=== PATIENT | female | born 1955 | race Caucasian/White ===

== ENCOUNTER 2017-11-18 10:05 | Outpatient (CLI) | payer OTHER ==
[2017-11-18 10:26] LABS: CREATININE 0.5 mg/dL (0.4-1.0)
== END 2017-11-18 10:06 | disposition home or self-care (01) ==
LOC: LAB 10:05
PROVIDERS: ATTEND Psychiatry & Neurology Vascular Neurology
DX: G35 Multiple sclerosis (principal)
CPT/HCPCS: 36415; 82565

== ENCOUNTER 2017-11-19 07:49 | Outpatient (CLI) | payer OTHER ==
[2017-11-19] MEDS ORDERED: GADOBUTROL 15 MMOL/15 ML VIAL ONE (07:52)
[2017-11-19] MEDS ORDERED: GADOBUTROL 15 MMOL/15 ML VIAL IVP ONE (08:24)
--- NOTE | 2017-11-19 12:29 | MRI Report ---
EXAM: MRI BRAIN WITHOUT AND WITH CONTRAST EXAM DATE: 11/19/2017 08:50 AM. CLINICAL HISTORY: Multiple sclerosis. History of cervical cancer 30 years ago. COMPARISON: MRI of the brain 04/14/2016. TECHNIQUE: Multiplanar, multisequence T1-weighted and fluid-sensitive MR sequences of the brain were performed. Sequences optimized for routine evaluation. Other: None. IV Contrast: 12 cc Gadavist. FINDINGS: Brain Volume: Normal for age. Parenchyma: Multiple foci of FLAIR hyperintensity with corresponding T1 hypointensity are present, co nsistent with demyelinating plaques. Callosal, lateral callosal, periventricular, deep, and subcortic al white matter involvement is seen in the cerebral hemispheres. Interval development of a bilobed 6 mm focus of cortical and subcortical based signal abnormality with faint enhancement is seen in the i nferior pole of the left occipital lobe. Increased diffusion without decreased ADC map signal is seen in this focus. Additionally there are several foci of cortical and subcortical based signal abnormality with encepha lomalacia seen. These are noted posterolaterally in the right cerebellum, superiorly in the left cere bellum, in the high posterior right parietal lobe. These are unchanged. No parenchymal mass or hemorr ashley. Ventricles/Cisterns: No hydrocephalus. No abnormal extra-axial fluid collection or hemorrhage. Orbits: Unremarkable. Note is made of bilateral lens removal. Postoperative change from left scleral buckling procedure is noted. These findings are unchanged. Sella Turcica: Note is made of a partially empty sella turcica. The pituitary gland, cavernous sinuse s, suprasellar cistern and optic chiasm are unremarkable. IAC: Symmetric and unremarkable. Vasculature: Normal signal flow void is seen in the major arterial structures at the skull base. The dural sinuses are patent and enhance normally. Sinuses: No acute sinus disease. Bones: No focal pathologic appearing marrow signal changes. Other: None. IMPRESSION: 1. Multiple foci of white matter signal change in the cerebral hemispheres consistent with clinical h istory of multiple sclerosis. There is a new bilobed 6 mm focus of cortical and subcortical signal se en in the left occipital pole. This demonstrates faint mild enhancement, increased diffusion signal w ithout decrease in ADC map signal. This could represent focus of active demyelination versus subacute ischemic focus. 2. Several wedge-shaped foci of cortical and subcortical signal abnormality and encephalomalacia seen in bilateral cerebellar hemispheres and the high right parietal lobe. These are unchanged. This coul d represent sequela of demyelination versus old infarcts. 3. No intracranial mass or hemorrhage. [facility] Referring Provider Line: [phone] SITE ID: [id number]
== END 2017-11-19 07:50 | disposition home or self-care (01) ==
LOC: DI 07:49
PROVIDERS: ATTEND Psychiatry & Neurology Vascular Neurology
DX: G35 Multiple sclerosis (principal)
CPT/HCPCS: 70553; A9585

== ENCOUNTER 2018-02-23 10:59 | Outpatient (CLI) | payer OTHER ==
--- NOTE | 2018-02-25 09:10 | Mammography Report ---
BILATERAL MAMMOGRAM AND BILATERAL BREAST ULTRASOUND: 02/23/2018 HISTORY: Bilateral breast pain. TECHNIQUE: Bilateral digital CC, MLO, ML and right exaggerated CC projections are performed. COMPARISON: 06/08/2016, 02/14/2015, 02/24/2014, and 10/05/2012. FINDINGS There are scattered fibroglandular densities. There is a Port-A-Cath in the left upper chest. There is no dominant mass, architectural distortion, skin thickening, suspicious microcalcifications or interval change. In the area of the small palpable lump 12-o'clock position right breast, no abnormality is seen. Realtime scanning is performed of the left breast upper outer quadrant in the area of clinical tenderness. No cystic or solid mass, abnormal fluid collections or other abnormality is seen. Right breast ultrasound is performed in the area of clinical tenderness in the 10 to 11-o'clock position, 10 cm from the nipple. No cystic or solid mass or abnormal fluid collection is seen. In the area of palpable abnormality in the 1 to 2-o'clock position, 10 cm from the nipple, no abnormality is identified. IMPRESSION: NEGATIVE BILATERAL MAMMOGRAPHY AND BILATERAL BREAST ULTRASOUND. BI-RADS CATEGORY 1 - NEGATIVE. SUGGEST ROUTINE SCREENING IN 12 MONTHS. SUGGEST CLINICAL FOLLOWUP OF BREAST TENDERNESS. STANDARD QUALIFYING STATEMENTS 1. This examination was reviewed with the aid of Computer-Aided Detection (CAD) . 2. A negative or benign imaging report should not delay biopsy if clinically suspicious findings are present. Consider surgical consultation if warranted. More than 5 % of cancers are not identified by imaging. 3. Dense breasts may obscure an underlying neoplasm. TD: 02/23/2018 14:46 RACHELE
== END 2018-02-23 11:00 | disposition home or self-care (01) ==
LOC: DI 10:59
PROVIDERS: ATTEND Physician Assistant
DX: N64.4 Mastodynia (principal)
CPT/HCPCS: 76642; 77066

== ENCOUNTER 2018-07-15 08:03 | Outpatient (CLI) | payer OTHER ==
[2018-07-15 08:19] LABS: BASOPHILS % (AUTO) 0.7 %; EOSINOPHILS # (AUTO) 0.2 10^3/uL (0.0-0.7); EOSINOPHILS % (AUTO) 4.4 %; HGB - HEMOGLOBIN 13.4 g/dL (12.0-16.0); LYMPHOCYTES # (AUTO) 1.6 10^3/uL (1.5-3.5); MEAN CORPUSCULAR HEMOGLOBIN 31.9 pg (27.0-31.0); MEAN CORPUSCULAR HGB CONC 33.9 g/dL (32.0-36.0); MEAN CORPUSCULAR VOLUME 94.3 fL (81.0-99.0); MEAN PLATELET VOLUME 7.9 fL (7.9-10.8); MONOCYTES # (AUTO) 0.4 10^3/uL (0.0-1.0); MONOCYTES % (AUTO) 9.9 %; NEUTROPHILS # (AUTO) 2.2 10^3/uL (1.5-6.6); PLT - PLATELET COUNT 163 10^3/uL (130-450); RED BLOOD COUNT 4.19 10^6/uL (4.20-5.40); RED CELL DISTRIBUTION WIDTH 13.4 % (12.0-15.0); WHITE BLOOD COUNT 4.5 x10^3/uL (4.8-10.8)
[2018-07-15 08:38] LABS: HB2 TOTAL 14.4 g/dL; HEMOGLOBIN A1C 0.51 g/dL; HEMOGLOBIN A1C % 5.4 % (4.6-6.2)
[2018-07-15 08:39] LABS: ALBUMIN 4.2 g/dL (3.2-5.5); ALBUMIN/GLOBULIN RATIO 1.6 (1.0-2.2); ALKALINE PHOSPHATASE 54 IU/L (42-121); ALT ALANINE AMINOTRANSFERASE 16 IU/L (10-60); AST ASPARTATE AMINOTRANSFERASE 19 IU/L (10-42); BILIRUBIN,TOTAL 0.8 mg/dL (0.2-1.0); BUN - BLOOD UREA NITROGEN 17 mg/dL (6-20); CALCIUM 8.9 mg/dL (8.5-10.3); CARBON DIOXIDE - CO2 27 mmol/L (21-32); CHLORIDE 107 mmol/L (101-111); CHOLESTEROL 241 mg/dL; CREATININE 0.6 mg/dL (0.4-1.0); GFR - MDRD 101 (>89); GLUCOSE 104 mg/dL (70-100); HDL CHOLESTEROL 48 mg/dL; LDL CHOLESTEROL,CALCULATED 169 mg/dL; LDL/HDL RATIO 3.5 (<4.4); SODIUM 141 mmol/L (135-145); TOTAL PROTEIN 6.9 g/dL (6.7-8.2); VLDL CHOLESTEROL 24 mg/dL
== END 2018-07-15 08:04 | disposition home or self-care (01) ==
LOC: LAB 08:03
PROVIDERS: ATTEND Family Medicine
DX: Z00.00 Encounter for general adult medical examination without abnormal findings (principal)
CPT/HCPCS: 36415; 80053; 80061; 83036; 83721; 84443; 85025

== ENCOUNTER 2018-12-16 22:52 | Outpatient (CLI) | payer BC ==
--- NOTE | 2018-12-17 00:48 | Ultrasound Report ---
Reason: LEG EDEMA,LEFT Procedure Date: 12/16/2018 Accession Number: [id number] / [id number] Procedure: US - Duplex Ext Veins Left CPT Code: FULL RESULT: EXAM: LEFT LOWER EXTREMITY VENOUS ULTRASOUND EXAM DATE: 12/16/2018 11:55 PM. CLINICAL HISTORY: LEG EDEMA,LEFT. COMPARISON: None. TECHNIQUE: Real-time sonographic vascular imaging was performed by the food supervisor through the lower extremity utilizing both color-flow and Doppler spectral analysis. Multiple accounts receivable representative static images were saved for review. FINDINGS: Common Femoral Vein (CFV): Normal. CFV-GSV Junction: Normal. Profunda Femoral Vein (PFV): Normal. Femoral Vein (FV) Prox: Normal. Femoral Vein (FV) Mid: Normal. Femoral Vein (FV) Dist: Normal. Popliteal Vein: Normal. Posterior Tibial Veins: Suboptimally seen due to edema. No thrombus identified. Peroneal Veins: Not seen due to edema. Contralateral Side CFV: Normal. Other: Popliteal fossa cyst measuring 5.4 x 1.7 x 3.5 cm. Subcutaneous edema in the symptomatic area. IMPRESSION: 1. No evidence for deep venous thrombosis. 2. Powers's cyst measuring 5.4 x 1.7 x 3.5 cm. [facility] The call report notification system was initiated by Dr. Sony Marques at 12:47 AM hrs on 12/17/2018.
== END 2018-12-16 22:53 | disposition home or self-care (01) ==
LOC: DI 22:52
PROVIDERS: ATTEND Family Medicine
DX: M71.22 Synovial cyst of popliteal space [Baker], left knee (principal)

== ENCOUNTER 2019-06-02 15:05 | Outpatient (CLI) | payer BC ==
--- NOTE | 2019-06-05 17:10 | Ultrasound Report ---
Reason: CLAUDICATION, BILATERAL Procedure Date: 06/02/2019 Accession Number: [id number] / [id number] Procedure: US - Duplex Lwr Ext Arterial Bilat CPT Code: FULL RESULT: EXAM: Bilateral Lower Extremity Arterial Doppler Ultrasound EXAM DATE: 06/02/2019 04:25 PM. CLINICAL HISTORY: Claudication, bilateral. COMPARISON: None. TECHNIQUE: Real-time sonographic vascular imaging was performed by the supervisor trust accounts, utilizing color-flow, Doppler flow, and spectral analysis. Multiple financial sales representative static images were saved for review. FINDINGS: The bilateral lower extremity arterial systems are interrogated by grayscale, color Doppler and spectral Doppler. The bilateral common femoral, deep femoral, superficial femoral, popliteal, anterior tibial, posterior tibial and peroneal arteries as well as dorsalis pedis arteries are patent by color Doppler. Spectral Doppler demonstrates brisk systolic upstrokes throughout both lower extremities. Grayscale examination demonstrates no subjectively high-grade focal stenosis. The following peak systolic velocities in centimeters per second were obtained. Right Lower Extremity: CITIZENSHIP TEACHER: 130 PSFA: 118 MSFA: 105 DSFA: 66 PFA: 42 POP: 60 ADELAIDE: 61 GAMES MANAGER: 108 MOIZ: 68 DPA: 42 Left Lower Extremity: CITIZENSHIP TEACHER: 80 PSFA: 108 MSFA: 110 DSFA: 103 PFA: 44 POP: 63 ADELAIDE: 51 GAMES MANAGER: 73 MOIZ: 85 DPA: 64 IMPRESSION: Normal three-vessel patency with preserved brisk arterial upstrokes in both lower extremities. [facility]
== END 2019-06-02 15:06 | disposition home or self-care (01) ==
LOC: DI 15:05
PROVIDERS: ATTEND Family Medicine
DX: I73.9 Peripheral vascular disease, unspecified (principal)
CPT/HCPCS: 93925

== ENCOUNTER 2019-09-20 13:57 | Outpatient (CLI) | payer BC ==
--- NOTE | 2019-09-22 11:26 | Mammography Report ---
Reason: ANNUAL SCREENING Procedure Date: 09/20/2019 Accession Number: [id number] / [id number] Procedure: MARIA LUISA - Screening Mammo w/Jorge CPT Code: Final Report FULL RESULT: EXAM: Screening Mammo w/Jorge DATE: 09/20/2019 2:21 PM CLINICAL HISTORY: Routine screening TECHNIQUE: (B) - Bilateral CC and MLO views were obtained. COMPARISON: 02/23/2018, 06/08/2016, 02/14/2015, 12/27/2013, 10/05/2012, 03/02/2011, and 02/11/2010 PARENCHYMAL PATTERN: (A) - The breasts demonstrate scattered fibroglandular densities bilaterally. FINDINGS: No significant interval change. There are no suspicious masses, calcifications, or areas of distortion. Previously seen left Port-A-Cath no longer appreciated. IMPRESSION: Negative examination. BI-RADS category 1. RECOMMENDATION: (ANNUAL) - Recommend routine annual screening mammography. BI-RADS CATEGORY: (1) - Negative. STANDARD QUALIFYING STATEMENTS: 1. This examination was not reviewed with the aid of Computer-Aided Detection (CAD). 2. A negative or benign imaging report should not preclude biopsy if clinically suspicious findings are present. 3. Dense breasts may obscure an underlying neoplasm. 4. This examination was reviewed with the aid of 3D breast imaging (tomosynthesis).
== END 2019-09-20 13:58 | disposition home or self-care (01) ==
LOC: DI 13:57
DX: Z12.31 Encounter for screening mammogram for malignant neoplasm of breast (principal)
CPT/HCPCS: 77063; 77067

== ENCOUNTER 2019-09-27 09:01 | Outpatient (CLI) | payer BC ==
[2019-09-27 09:27] LABS: BASOPHILS % (AUTO) 0.4 %; EOSINOPHILS # (AUTO) 0.1 10^3/uL (0.0-0.7); EOSINOPHILS % (AUTO) 2.6 %; HGB - HEMOGLOBIN 13.4 g/dL (12.0-16.0); LYMPHOCYTES # (AUTO) 1.6 10^3/uL (1.5-3.5); LYMPHOCYTES % (AUTO) 30.4 %; MEAN CORPUSCULAR HEMOGLOBIN 31.9 pg (27.0-31.0); MEAN CORPUSCULAR HGB CONC 32.4 g/dL (32.0-36.0); MEAN CORPUSCULAR VOLUME 98.3 fL (81.0-99.0); MEAN PLATELET VOLUME 10.2 fL (7.9-10.8); MONOCYTES # (AUTO) 0.5 10^3/uL (0.0-1.0); MONOCYTES % (AUTO) 9.1 %; NEUTROPHILS # (AUTO) 3.1 10^3/uL (1.5-6.6); NEUTROPHILS % (AUTO) 57.1 %; PLT - PLATELET COUNT 172 10^3/uL (130-450); RED CELL DISTRIBUTION WIDTH 11.9 % (12.0-15.0); WHITE BLOOD COUNT 5.4 x10^3/uL (4.8-10.8)
[2019-09-27 09:48] LABS: HB2 TOTAL 13.4 g/dL; HEMOGLOBIN A1C 0.54 g/dL; HEMOGLOBIN A1C % 5.8 % (4.6-6.2)
[2019-09-27 09:50] LABS: ALBUMIN 4.3 g/dL (3.2-5.5); ALBUMIN/GLOBULIN RATIO 1.5 (1.0-2.2); ALKALINE PHOSPHATASE 60 IU/L (42-121); ALT ALANINE AMINOTRANSFERASE 16 IU/L (10-60); AST ASPARTATE AMINOTRANSFERASE 18 IU/L (10-42); BILIRUBIN,TOTAL 0.3 mg/dL (0.2-1.0); BUN - BLOOD UREA NITROGEN 21 mg/dL (6-20); CARBON DIOXIDE - CO2 29 mmol/L (21-32); CHLORIDE 107 mmol/L (101-111); CHOL/HDL RATIO 4.2 (<4.4); CHOLESTEROL 252 mg/dL; CREATININE 0.6 mg/dL (0.4-1.0); GFR - MDRD 100 (>89); GLUCOSE 105 mg/dL (70-100); HDL CHOLESTEROL 60 mg/dL; LDL CHOLESTEROL,CALCULATED 176 mg/dL; LDL/HDL RATIO 2.9 (<4.4); SODIUM 142 mmol/L (135-145); TOTAL PROTEIN 7.1 g/dL (6.7-8.2); VLDL CHOLESTEROL 16 mg/dL
[2019-09-29 07:32] LABS: HEPATITIS C ANTIBODY NON-REACTIVE (NON-REACTIVE)
== END 2019-09-27 09:02 | disposition home or self-care (01) ==
LOC: LAB 09:01
PROVIDERS: ATTEND Family Medicine
DX: G35 Multiple sclerosis (principal); R73.01 Impaired fasting glucose; E78.5 Hyperlipidemia, unspecified; Z11.59 Encounter for screening for other viral diseases
CPT/HCPCS: 36415; 80053; 80061; 83036; 83721; 85025; 86803

== ENCOUNTER 2019-10-02 13:00 | Outpatient (CLI) | payer BC ==
[2019-10-02] MEDS ORDERED: SODIUM CHLORIDE FLUSH 0.9% 10 ML SYRINGE ONE (15:41)
--- NOTE | 2019-10-03 10:36 | DEXA Report ---
Reason: POSTMENOPAUSAL Procedure Date: 10/02/2019 Accession Number: [id number] / [id number] Procedure: DEX - Dexa Spine and/or Hip CPT Code: Final Report FULL RESULT: EXAM: Dexa Spine and/or Hip DATE: 10/02/2019 1:33 PM CLINICAL HISTORY: POSTMENOPAUSAL TECHNIQUE: Dual energy x-ray absorptiometry (DXA) was performed on a [employer] System. Regions measured are the AP Spine, femoral neck, and if needed forearm. COMPARISON: None. In accordance with the International Society for Clinical Densitometry (ISCD) guidelines, data from previous exams may be reanalyzed using current recommendations and techniques. This is done to allow a more accurate basis for comparison with the current study. FINDINGS: The data for the lumbar spine is as follows: BMD (g/cm/cm) T-SCORE Z-SCORE REGION L1 1.100 -0.3 0.2 L2 1.259 0.5 0.9 L3 1.503 2.5 3.0 L4 1.405 1.7 2.1 TOTAL 1.317 1.1 1.6 NOTE: All evaluable vertebrae are used for classification The data for the hip is as follows: BMD (g/cm/cm) T-SCORE Z-SCORE REGION Neck 0.826 -1.5 -0.8 TOTAL 0.848 -1.3 -0.9 NOTE: The femoral neck or total proximal femur, whichever is lowest, is used for classification. IMPRESSION: THE WHO CLASSIFICATION BASED ON THE INTERNATIONAL REFERENCE STANDARD IS OSTEOPENIA. THE FRACTURE RISK IS INCREASED. RECOMMENDATION: Patients with diagnosis of osteoporosis or osteopenia should have regular bone mineral density assessment. For those eligible for Medicare, routine testing is allowed once every 2 years. Testing frequency can be increased for patients who have rapidly progressing disease or for those who are receiving medical therapy to restore bone mass. COMMENT: World Health Organization (WHO) definitions for osteoporosis and osteopenia: NORMAL BMD: T-score at -1.0 or higher, fracture risk is low OSTEOPENIA BMD: T-score between -1.0 and -2.5, fracture risk is increased. OSTEOPOROSIS BMD: T-score at -2.5 or lower, fracture risk is high. National Osteoporosis Foundation recommends: 1. Obtain adequate dietary calcium (at least 1200 mg per day) and vitamin D (400-800 international units per day). 2. Participate, as appropriate, in regular weightbearing and muscle-strengthening exercise. 3. Avoid tobacco use and reduce alcohol and caffeine intake. 4. For more detailed information see the website at www.NOF.org.
== END 2019-10-02 13:01 | disposition home or self-care (01) ==
LOC: DI 13:00
PROVIDERS: ATTEND Family Medicine
DX: M85.88 Other specified disorders of bone density and structure, other site (principal)
CPT/HCPCS: 77080

== ENCOUNTER 2019-11-23 16:01 | Outpatient (CLI) | payer BC ==
[~2019-11-23 16:01] MED LIST: GADOBUTROL 10 MMOL/10 ML VIAL ONE
[2019-11-23] MEDS ORDERED: GADOBUTROL 10 MMOL/10 ML VIAL IVP ONE (16:48)
--- NOTE | 2019-11-23 17:50 | MRI Report ---
Reason: CERVICAL RADICULOPATHY RT, MULTIPLE SCLEROSIS Procedure Date: 11/23/2019 Accession Number: [id number] / [id number] Procedure: MRI - Cervical Spine W/WO CPT Code: Final Report FULL RESULT: EXAM: MRI CERVICAL SPINE WITHOUT AND WITH CONTRAST EXAM DATE: 11/23/2019 03:57 PM. CLINICAL HISTORY: 64-year-old female. CERVICAL RADICULOPATHY RT, MULTIPLE SCLEROSIS. COMPARISON: MR cervical spine 04/14/2016 TECHNIQUE: Multiplanar, multisequence T1-weighted and fluid-sensitive sequences of the cervical spine before and after administration of intravenous contrast. Other: None. IV contrast: 10 ML Gadavist. FINDINGS: Neurologic Structures: The visualized posterior fossa structures are unremarkable. No signal abnormality in the visualized spinal cord. No abnormal enhancement. Alignment: Grade 1 retrolisthesis C4 on C5 measuring 3 mm. Grade 1 retrolisthesis C5 on C6 measuring 2 mm. Grade 1 retrolisthesis C6 on C7 measuring 2 mm. Bone Marrow: No gross fractures or bone lesions. No marrow edema or abnormal enhancement. 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 This is similar to prior study. Interspace Levels/Facets: C1-C2: Unremarkable. C2-C3: Mild diffuse disk bulge. No significant central canal or foraminal narrowing. C3-C4: Moderate posterior disk osteophyte complex, asymmetric to the right. Moderate central canal narrowing with mass-effect on the right aspect of the cord. This is similar to prior study. No foraminal narrowing. Overall no interval progression. C4-C5: Mild disk height loss and desiccation. Moderate posterior disk osteophyte complex. Moderate to severe central canal narrowing with mass-effect on the cord, similar to prior study. Moderate to severe right and gsdb-ry-bsybngwr left foraminal narrowing. No interval progression. C5-C6: Moderate posterior disk osteophyte, place. Moderate bilateral uncovertebral spurring. Mild to moderate central canal narrowing with mild flattening of the cord. Moderate bilateral foraminal narrowing. No interval progression. C6-C7: Mild disk height loss and desiccation. Prominent posterior disk osteophyte complex, asymmetric to the left. Moderate to severe left and mild right uncovertebral spurring. Mild central canal narrowing and moderate left lateral recess narrowing. Moderate to severe left and mild to moderate right foraminal narrowing. No interval progression. C7-T1: No significant central canal or foraminal narrowing. Spinal Canal: No enhancing lesions within the spinal canal. No epidural abscess. Musculature: Normal. No edema, enhancement, or fatty atrophy. Other: The paravertebral and prevertebral soft tissues are normal. IMPRESSION: 1. 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 2. No definite T2/FLAIR hyperintense cord lesions to suggest evidence for MS. No abnormal enhancement. No acute fracture or traumatic subluxation. No bone marrow edema. 3. C3-C4: Moderate central canal narrowing with mass-effect on the right aspect of the cord. This is similar to prior study. No foraminal narrowing. Overall no interval progression. 4. C4-C5: Moderate to severe central canal narrowing with mass-effect on the cord, similar to prior study. Moderate to severe right and qvyf-gj-rseabyon left foraminal narrowing. No interval progression. Recommend correlation for right C5 radicular symptoms. 5. C5-C6: Mild to moderate central canal narrowing with mild flattening of the cord. Moderate bilateral foraminal narrowing. No interval progression. Recommend correlation for bilateral C6 radicular symptoms. 6. C6-C7: Mild central canal narrowing and moderate left lateral recess narrowing. Moderate to severe left and mild to moderate right foraminal narrowing. No interval progression. Recommend correlation for left C7 radicular symptoms. [facility]
== END 2019-11-23 16:02 | disposition home or self-care (01) ==
LOC: DI 16:01
PROVIDERS: ATTEND Family Medicine
DX: M47.812 Spondylosis without myelopathy or radiculopathy, cervical region (principal); M50.321 Other cervical disc degeneration at C4-C5 level; M48.02 Spinal stenosis, cervical region; M43.12 Spondylolisthesis, cervical region; G35 Multiple sclerosis
CPT/HCPCS: 72156

== ENCOUNTER 2019-12-14 09:29 | Outpatient (CLI) | payer BC ==
--- NOTE | 2019-12-14 15:32 | XRAY Report ---
Reason: RIGHT ACROMIOCLAVICULAR PAIN Procedure Date: 12/14/2019 Accession Number: [id number] / [id number] Procedure: WCP - Shoulder 2 View RT CPT Code: Final Report FULL RESULT: EXAM: RIGHT SHOULDER RADIOGRAPHY EXAM DATE: 12/14/2019 09:29 AM. CLINICAL HISTORY: RIGHT ACROMIOCLAVICULAR PAIN. COMPARISON: None. TECHNIQUE: 2 views. FINDINGS: Bones: Osteopenia. No definite fracture or other bone lesion. Joints: Marked AC joint degenerative changes. Anatomic alignment. Soft tissues: Clear visualized lung. IMPRESSION: Marked degenerative joint disease. [facility]
== END 2019-12-14 23:59 | disposition home or self-care (01) ==
LOC: DI.WCP 09:29
PROVIDERS: ATTEND Family Medicine
DX: M19.011 Primary osteoarthritis, right shoulder (principal)

== ENCOUNTER 2020-01-25 10:03 | Day surgery (SDC) | payer BC ==
[2020-01-25] MEDS ORDERED: MIDAZOLAM 2 MG/2 ML VIAL IVP ONE (10:04)
[2020-01-25] MEDS ORDERED: fentaNYL 250 MCG/5 ML VIAL IVP ONE (10:04)
[2020-01-25] MEDS ORDERED: LACTATED RINGERS 1,000 ML IV ONE (10:27)
[2020-01-25 13:04] VITALS: BP 101/59
== END 2020-01-25 10:04 | disposition home or self-care (01) ==
LOC: SDS 10:03
PROVIDERS: ATTEND Surgery
DX: Z12.11 Encounter for screening for malignant neoplasm of colon (principal); K64.8 Other hemorrhoids; K64.4 Residual hemorrhoidal skin tags; Q43.8 Other specified congenital malformations of intestine; E66.9 Obesity, unspecified; Z68.41 Body mass index [BMI] 40.0-44.9, adult
CPT/HCPCS: 45378; J3010; J7120

== ENCOUNTER 2020-06-06 11:19 | Outpatient (CLI) | payer BC ==
[2020-06-06 11:30] LABS: BASOPHILS % (AUTO) 0.8 %; EOSINOPHILS # (AUTO) 0.1 10^3/uL (0.0-0.7); EOSINOPHILS % (AUTO) 2.9 %; HGB - HEMOGLOBIN 13.9 g/dL (12.0-16.0); LYMPHOCYTES # (AUTO) 1.9 10^3/uL (1.5-3.5); LYMPHOCYTES % (AUTO) 38.2 %; MEAN CORPUSCULAR HEMOGLOBIN 33.4 pg (27.0-31.0); MEAN CORPUSCULAR HGB CONC 33.7 g/dL (32.0-36.0); MEAN CORPUSCULAR VOLUME 99.3 fL (81.0-99.0); MEAN PLATELET VOLUME 10.3 fL (7.9-10.8); MONOCYTES # (AUTO) 0.5 10^3/uL (0.0-1.0); MONOCYTES % (AUTO) 9.4 %; NEUTROPHILS # (AUTO) 2.4 10^3/uL (1.5-6.6); NEUTROPHILS % (AUTO) 48.5 %; PLT - PLATELET COUNT 181 10^3/uL (130-450); RED BLOOD COUNT 4.16 10^6/uL (4.20-5.40); RED CELL DISTRIBUTION WIDTH 11.7 % (12.0-15.0); WHITE BLOOD COUNT 4.9 x10^3/uL (4.8-10.8)
== END 2020-06-06 11:20 | disposition home or self-care (01) ==
LOC: LAB 11:19
PROVIDERS: ATTEND Orthopaedic Surgery Orthopaedic Surgery of the Spine
DX: Z01.812 Encounter for preprocedural laboratory examination (principal)
CPT/HCPCS: 36415; 85025

== ENCOUNTER 2020-06-14 17:59 | Emergency (ER) | payer OTHER, BC ==
[2020-06-14] MEDS ORDERED: HYDROcod/ACETAM 5/325 MG TABLET PO STA (18:37)
--- NOTE | 2020-06-14 18:38 | ED Physician Documentation ---
History of Present Illness - Stated complaint Stated Complaint: HEAD INJ - Chief complaint Chief Complaint: General - History obtained from History obtained from: Patient (She was at work, bending over to get her lunch box and her chair came out from under her and she hit the right parietal area on a drawer on the way down. Now has a mild headache. No loss of consciousness. No other injuries.) Review of Systems Constitutional: reports: Reviewed and negative Throat: reports: Reviewed and negative Cardiac: reports: Reviewed and negative PD PAST MEDICAL HISTORY - Past Medical History Cardiovascular: None Respiratory: None Endocrine/Autoimmune: None GI: GERD : None HEENT: Other Psych: None Musculoskeletal: None Derm: None - Past Surgical History Past Surgical History: Yes General: Cholecystectomy, Colonoscopy Ortho: Other Cardiovascular: Other HEENT: Cataracts, Detached retina repair - Present Medications Home Medications: Ambulatory Orders Medication Instructions Recorded Confirmed Baclofen 20 mg PO TID 04/30/16 10/02/19 carBAMazepine [Carbatrol] 1 tab PO Q4HR 03/18/18 10/02/19 Gabapentin 300 mg PO 01/24/20 Acyclovir 1 BID 01/25/20 Mirabegron [Myrbetriq] 1 DAILY 01/25/20 Solifenacin Succinate 1 DAILY PM 01/25/20 - Allergies Allergies/Adverse Reactions: Allergies Allergy/AdvReac Type Severity Reaction Status Date / Time Beta-Blockers Allergy Intermediate Hives Verified 06/14/20 18:35 (Beta-Adrenergic Bloc interferon beta-1a Allergy Unknown Verified 06/14/20 18:35 [From Avonex] - Social History Does the pt smoke?: No Smoking Status: Never smoker Does the pt have substance abuse?: No PD ED PE NORMAL - Vitals Vital signs reviewed: Yes - General General: Alert and oriented X 3 - HEENT HEENT: PERRL, EOMI, Other (Hematoma on the right parietal area, patient looks somewhat uncomfortable) - Neck Neck: No bony TTP - Neuro Neuro: Alert and oriented X 3, bioinformatics technician 2-12 intact, No motor deficit, No sensory deficit, Normal speech Results - Vitals Vitals: Vital Signs - 24 hr 06/14/20 06/14/20 18:14 19:16 Temperature 36.7 C Heart Rate 74 74 Respiratory 18 16 Rate Blood Pressure 163/66 H 143/69 H O2 Saturation 98 Oxygen O2 Source Room air - Rads (name of study) CT of the head without contrast Radiology: EMP read contemporaneously (Old lacunar infarct in the left basal ganglia, small old infarct in the right high parietal lobe, some chronic ischemic changes, no evidence of acute trauma.) PD MEDICAL DECISION MAKING - ED course ED course: 64-year-old woman with a head injury, headache. CT imaging negative for acute trauma but incidental lacunar infarcts were discussed with her. Departure - Departure Disposition: 01 Home, Self Care Clinical Impression: Head injuries Qualifiers: Encounter type: initial encounter Qualified Code(s): S09.90XA - Unspecified injury of head, initial encounter Condition: Good Record reviewed to determine appropriate education?: Yes Instructions: ED Head Injury Closed Comments: As discussed, CT of the head today demonstrates that you have had some old order for lacunar infarcts. Follow-up with your primary care physician for evaluation of this. No evidence of severe head injury on CT or exam. Return as needed. Discharge Date/Time: 06/14/20 19:16
--- NOTE | 2020-06-14 18:55 | CT Report ---
PROCEDURE: HEAD WO INDICATIONS: head inj TECHNIQUE: Noncontrast 4.5 mm thick angled axial sections acquired from the foramen magnum to the vertex. For r adiation dose reduction, the following was used: automated exposure control, adjustment of mA and/or kV according to patient size. COMPARISON: None FINDINGS: Image quality: Excellent. CSF spaces: Basal cisterns are patent. No extra-axial fluid collections. The ventricles are symmet pipe in size and shape. Brain: No intracranial bleeds or masses. Old lacunar infarct is seen in left basal ganglia. Small o ld infarction in right posterior high parietal lobe subcortical white matter is also seen. There is c erebral volume loss for age, with resultant ventricular and sulcal prominence. There are periventric ular and deep white matter chronic small vessel ischemic changes. There is intracranial internal car otid artery atherosclerosis. Skull and face: Calvarium and visualized facial bones appear intact, without suspicious lesions. Sinuses: Visualized sinuses and mastoids are clear. IMPRESSION: 1. No CT evidence of acute intracranial pathology. No acute skull fracture. 2. Old lacunar infarct in left basal ganglia. Small old infarction in right high parietal lobe subcor tical white matter. Mild periventricular and deep white matter small vessel chronic ischemic changes. Reviewed by: Trey Amor MD on 06/14/2020 6:54 PM PDT Approved by: Trey Amor MD on 06/14/2020 6:54 PM PDT Station ID: [id number]
[2020-06-14 19:16] VITALS: BP 143/69
== END 2020-06-14 19:16 | disposition home or self-care (01) ==
LOC: ED 17:59
DX: S09.90XA Unspecified injury of head, initial encounter (principal); S00.03XA Contusion of scalp, initial encounter; W22.03XA Walked into furniture, initial encounter; Y99.0 Civilian activity done for income or pay; Z86.73 Personal history of transient ischemic attack (TIA), and cerebral infarction without residual deficits
CPT/HCPCS: 70450; 99284; A9270; 1040M

== ENCOUNTER 2020-09-09 09:18 | Outpatient (CLI) | payer BC ==
[2020-09-09 09:45] LABS: BASOPHILS % (AUTO) 0.7 %; EOSINOPHILS # (AUTO) 0.3 10^3/uL (0.0-0.7); EOSINOPHILS % (AUTO) 6.2 %; HGB - HEMOGLOBIN 13.3 g/dL (12.0-16.0); LYMPHOCYTES # (AUTO) 1.5 10^3/uL (1.5-3.5); LYMPHOCYTES % (AUTO) 33.1 %; MEAN CORPUSCULAR HEMOGLOBIN 32.3 pg (27.0-31.0); MEAN CORPUSCULAR HGB CONC 32.8 g/dL (32.0-36.0); MEAN CORPUSCULAR VOLUME 98.5 fL (81.0-99.0); MEAN PLATELET VOLUME 10.4 fL (7.9-10.8); MONOCYTES # (AUTO) 0.4 10^3/uL (0.0-1.0); MONOCYTES % (AUTO) 8.2 %; NEUTROPHILS # (AUTO) 2.3 10^3/uL (1.5-6.6); NEUTROPHILS % (AUTO) 51.6 %; PLT - PLATELET COUNT 172 10^3/uL (130-450); RED BLOOD COUNT 4.12 10^6/uL (4.20-5.40); RED CELL DISTRIBUTION WIDTH 11.9 % (12.0-15.0); WHITE BLOOD COUNT 4.4 x10^3/uL (4.8-10.8)
[2020-09-09 10:08] LABS: ALBUMIN/GLOBULIN RATIO 1.4 (1.0-2.2); ALKALINE PHOSPHATASE 73 IU/L (42-121); ALT ALANINE AMINOTRANSFERASE 15 IU/L (10-60); AST ASPARTATE AMINOTRANSFERASE 19 IU/L (10-42); BILIRUBIN,TOTAL 0.5 mg/dL (0.2-1.0); BUN - BLOOD UREA NITROGEN 15 mg/dL (6-20); CALCIUM 9.4 mg/dL (8.5-10.3); CARBON DIOXIDE - CO2 24 mmol/L (21-32); CHLORIDE 104 mmol/L (101-111); CHOL/HDL RATIO 5.3 (<4.4); CHOLESTEROL 247 mg/dL; CREATININE 0.6 mg/dL (0.4-1.0); GLUCOSE 102 mg/dL (70-100); HDL CHOLESTEROL 47 mg/dL; LDL CHOLESTEROL,CALCULATED 166 mg/dL; LDL/HDL RATIO 3.5 (<4.4); SODIUM 141 mmol/L (135-145); TOTAL PROTEIN 6.9 g/dL (6.7-8.2); VLDL CHOLESTEROL 34 mg/dL
[2020-09-09 13:25] LABS: HEMOGLOBIN A1c% 5.2 % (4.27-6.07)
[2020-09-10 12:57] LABS: HEPATITIS C ANTIBODY NON-REACTIVE (NON-REACTIVE)
== END 2020-09-09 09:19 | disposition home or self-care (01) ==
LOC: LAB 09:18
PROVIDERS: ATTEND Family Medicine
DX: Z00.00 Encounter for general adult medical examination without abnormal findings (principal); E78.5 Hyperlipidemia, unspecified; R73.01 Impaired fasting glucose; Z11.59 Encounter for screening for other viral diseases
CPT/HCPCS: 36415; 80053; 80061; 83036; 83721; 85025; 86803

== ENCOUNTER 2020-09-09 11:15 | Outpatient (CLI) | payer BC ==
--- NOTE | 2020-09-10 16:43 | Mammography Report ---
BILATERAL DIGITAL SCREENING MAMMOGRAM 3D/2D: 09/09/2020 CLINICAL: Routine screening. Comparison is made to exams dated: 09/20/2019 mammogram, 02/23/2018 ultrasound, 02/23/2018 ultrasound, mammogram, and 06/08/2016 mammogram - [facility]. There are scattered fibro glandular elements in both breasts. No significant masses, calcifications, or other findings are seen in either breast. There has been no significant interval change. IMPRESSION: NEGATIVE There is no mammographic evidence of malignancy. A 1 year screening mammogram is recommended. This exam was interpreted at Station ID: [id number]. NOTE: For mammograms, a report in lay terms will be sent to the patient. Approximately 15% of breast malignancies will not be visualized mammographically. In the management of a palpable breast mass, a negative mammogram must not discourage biopsy of a clinically suspicious lesion. Electronically Signed By: Jose Alfredo Aguero M.D. ar/penrad:09/09/2020 15:06:59 ACR BI-RADS Category 1: Negative [id number] PARENCHYMAL PATTERN: (A) - The breast(s) demonstrate(s) scattered fibroglandular densities. BI-RADS CATEGORY: (1) - 1 RECOMMENDATION: (ANNUAL) - Recommend routine annual screening mammography. [id number] 1 year screening LATERALITY: (B)
== END 2020-09-09 11:16 | disposition home or self-care (01) ==
LOC: DI.N 11:15
DX: Z12.31 Encounter for screening mammogram for malignant neoplasm of breast (principal)
CPT/HCPCS: 77063; 77067

== ENCOUNTER 2020-09-09 14:27 | Outpatient (CLI) | payer BC ==
--- NOTE | 2020-09-09 15:27 | Ultrasound Report ---
PROCEDURE: Carotid Doppler Complete INDICATIONS: HX OF LACUNAR CVA, RT SH PAIN, ADH CAPSULITIS RT S TECHNIQUE: Color and pulse Doppler interrogation was performed of both carotid systems, with image documentation and velocity measurements. COMPARISON: None. FINDINGS: Right side: Common carotid artery peak systolic velocity: 82 cm/sec. Internal carotid artery peak systolic velocity: 71 cm/sec. Internal carotid artery end diastolic velocity: 29 cm/sec. External carotid artery peak systolic velocity: 78 cm/sec. ICA/CCA peak systolic ratio: 0.9 . Gomez scale imaging description: No calcific or soft plaque Percent internal carotid artery stenosis: None found . Vertebral artery: Flow direction is antegrade. Left side: Common carotid artery peak systolic velocity: 98 cm/sec. Internal carotid artery peak systolic velocity: 63 cm/sec. Internal carotid artery end diastolic velocity: 24 cm/sec. External carotid artery peak systolic velocity: 91 cm/sec. ICA/CCA peak systolic ratio: 0.6 . Gomez scale imaging description: No calcific or soft plaque Percent internal carotid artery stenosis: None found . Vertebral artery: Flow direction is antegrade. IMPRESSION: No carotid stenosis bilaterally. Normal vertebral arterial flow bilaterally. The estimate of stenosis included in the report of the imaging study was calculated using the NASCET method Reviewed by: Marco Mccurdy MD on 09/09/2020 3:25 PM PDT Approved by: Marco Mccurdy MD on 09/09/2020 3:25 PM PDT Station ID: [id number]
== END 2020-09-09 14:28 | disposition home or self-care (01) ==
LOC: DI 14:27
PROVIDERS: ATTEND Family Medicine
DX: Z00.00 Encounter for general adult medical examination without abnormal findings (principal); Z86.73 Personal history of transient ischemic attack (TIA), and cerebral infarction without residual deficits; E78.5 Hyperlipidemia, unspecified; R73.01 Impaired fasting glucose; Z11.59 Encounter for screening for other viral diseases
CPT/HCPCS: 36415; 80053; 80061; 83036; 83721; 85025; 86803; 93880

== ENCOUNTER 2020-09-12 15:43 | Outpatient (CLI) | payer BC ==
--- NOTE | 2020-09-12 17:42 | XRAY Report ---
PROCEDURE: Lumbar Spine 2 View INDICATIONS: LUMBAR RADICULOPATHY TECHNIQUE: 2 views of the lumbar spine were acquired. COMPARISON: None. FINDINGS: Bones: 5 akr-lin-onosdgd vertebrae are present. There is straightening of normal lumbar lordosis. T here is also minimal anterolisthesis of L3 on L4 and L4 and L5. Moderate multilevel lumbar spondylosi s with degenerative endplate changes and endplate osteophyte formation seen throughout the imaged low er thoracic and entire lumbar spine. There are moderate degenerative changes at the lumbosacral junct ion of L5-S1. There is severe multilevel facet arthropathy extending from L1 to through L5-S1. No acu te vertebral body compression fractures. No suspicious bony lesions. Soft tissues: Overlying bowel gas pattern is normal. No suspicious soft tissue calcifications. IMPRESSION: 1. Moderate multilevel lower thoracic and lumbar spondylosis with severe multilevel facet arthropathy of the lumbar spine. Degree of facet arthropathy appears disproportionate compared to degenerative e ndplate changes. Consider further characterization with advanced cross-sectional imaging with MRI or CT. 2. Straightening of normal lumbar lordosis likely related to combination of patient positioning and/o r muscle spasms. Reviewed by: Maury Lancaster MD on 09/12/2020 5:41 PM PDT Approved by: Maruy Lancaster MD on 09/12/2020 5:41 PM PDT Station ID: [id number]
== END 2020-09-12 15:44 | disposition home or self-care (01) ==
LOC: DI 15:43
PROVIDERS: ATTEND Family Medicine
DX: M47.814 Spondylosis without myelopathy or radiculopathy, thoracic region (principal); M47.816 Spondylosis without myelopathy or radiculopathy, lumbar region; M43.16 Spondylolisthesis, lumbar region
CPT/HCPCS: 72100

== ENCOUNTER 2020-09-25 09:47 | Outpatient (CLI) | payer MEDICARE, OTHER ==
--- NOTE | 2020-09-25 13:13 | MRI Report ---
PROCEDURE: Shoulder RT W/O INDICATIONS: JOINT PAIN TECHNIQUE: Noncontrast oblique coronal T2 fast spin echo with fat saturation, oblique sagittal T1 spin echo and T2 fast spin echo with fat saturation, axial T1 spin echo and T2 fast spin echo with fat saturation t hrough the shoulder. COMPARISON: Right shoulder radiographs dated 12/14/2019. FINDINGS: Image quality: Diagnostic. Rotator cuff: There is moderate to severe supraspinatus and infraspinatus tendinosis. The teres vignesh r tendon is intact. There is moderate subscapularis tendinosis that may include low-grade intrasubsta nce tearing at the superior insertion. There is mild grade 1-2 fatty infiltration of the rotator cuff musculature as well as the remaining visualized muscles surrounding the shoulder. Bones and bursae: No acute bone marrow contusions or fractures. Chronic traction cystic changes are seen at the posterosuperior humeral head. There is mild degenerative spurring in the glenoid rim. Mod erate degenerative changes are seen at the acromioclavicular joint. A small subacromial/subdeltoid bu rsal effusion is seen. There is also a small amount of subcoracoid bursal fluid. There is a moderate glenohumeral effusion with mild synovial hypertrophy. Capsule and soft tissues: There is mild degeneration of the superior labrum without a discrete tear, although evaluation is mildly compromised by the lack of intra-articular contrast material and mild patient motion. The long head of the biceps tendon demonstrates moderate tendinosis. There is partial effacement of the normal fat signal in the rotator interval. The inferior glenohume ral ligament is normal in thickness. IMPRESSION: 1. Moderate to severe supraspinatus and infraspinatus tendinosis. Moderate subscapularis tendinosis with low-grade intrasubstance tearing of the superior insertion. 2. Moderate tendinosis of the biceps long head tendon. 3. Mild degeneration of the superior labrum without a discrete labral tear. 4. Moderate acromioclavicular joint osteoarthrosis. 5. Small subacromial/subdeltoid and subcoracoid bursal effusions or bursitis. Moderate glenohumeral effusion. Reviewed by: Jose Alfredo Aguero MD on 09/25/2020 1:12 PM PST Approved by: Jose Alfredo Aguero MD on 09/25/2020 1:12 PM [facility] Station ID: [id number]
== END 2020-09-25 09:48 | disposition home or self-care (01) ==
LOC: DI 09:47
PROVIDERS: ATTEND Family Medicine
DX: M75.01 Adhesive capsulitis of right shoulder (principal); M19.011 Primary osteoarthritis, right shoulder; M75.51 Bursitis of right shoulder; S46.811A Strain of other muscles, fascia and tendons at shoulder and upper arm level, right arm, initial encounter; M75.81 Other shoulder lesions, right shoulder

== ENCOUNTER 2021-01-23 14:56 | Outpatient (CLI) | payer MEDICARE, OTHER ==
--- NOTE | 2021-01-23 16:26 | XRAY Report ---
PROCEDURE: Sacrum/Coccyx INDICATIONS: COCCYX PAIN TECHNIQUE: 3 views of the sacrum and coccyx acquired. COMPARISON: Lumbar spine radiographs 01/13/2020 FINDINGS: Bones: No acute fractures or dislocations. No suspicious bony lesions. Severe facet hypertrophy and degenerative disc disease are seen in the included portions of the lower lumbar spine. Mild degenera tive changes are seen in the hips. Small enthesophytes are seen at the anterosuperior iliac spines an d the right greater trochanter. Soft tissues: A neurostimulator device is seen projecting over the left gluteal region. Visualized b owel gas pattern is normal. No suspicious soft tissue densities. IMPRESSION: 1. No acute sacrococcygeal fracture or subluxation. MRI or CT may be obtained if there is continued clinical concern. 2. Multilevel spondylosis in the included lower lumbar spine. Reviewed by: Jose Alfredo Aguero MD on 01/23/2021 4:24 PM PST Approved by: Jose Alfredo Aguero MD on 01/23/2021 4:24 PM PST Station ID: [id number]
== END 2021-01-23 14:57 | disposition home or self-care (01) ==
LOC: DI 14:56
PROVIDERS: ATTEND Nurse Practitioner Family
DX: M53.3 Sacrococcygeal disorders, not elsewhere classified (principal); M47.816 Spondylosis without myelopathy or radiculopathy, lumbar region

== ENCOUNTER 2021-02-06 14:44 | Emergency (ER) | payer MEDICARE, OTHER ==
[2021-02-06 14:53] VITALS: BP 148/81
[2021-02-06] MEDS ORDERED: HYDROcod/ACETAM 5/325 MG TABLET PO STA (15:08)
--- NOTE | 2021-02-06 15:11 | ED Physician Documentation ---
PD HPI BACK PAIN - Stated complaint Stated Complaint: BACK/NECK PX - Chief complaint Chief Complaint: Back Pain - History obtained from History obtained from: Patient - Additional information Additional information: She had what sounds like a discectomy with cervical fusion in May 2020. Had a lot of trouble with her right shoulder after that. Subsequently his shoulder is getting better. About a week ago she had a simple trip and fall and landed face first against a door frame with the doorknob hitting her in the left parietal area. There is no loss of consciousness but she has persistent left parietal headaches, neck pain, and upper back pain. She has been taking hydrocodone on occasion which is helpful. Pain in the left posterior thorax much worse if she coughs. No other injuries. Review of Systems Ten Systems: 10 systems reviewed and negative Cardiac: reports: Chest pain / pressure. denies: Palpitations Respiratory: denies: Dyspnea, Cough PD PAST MEDICAL HISTORY - Past Medical History Cardiovascular: None Respiratory: None Endocrine/Autoimmune: None GI: GERD : None HEENT: Other Psych: None Musculoskeletal: None Derm: None - Past Surgical History Past Surgical History: Yes General: Cholecystectomy, Colonoscopy Ortho: Other Cardiovascular: Other HEENT: Cataracts, Detached retina repair - Present Medications Home Medications: Ambulatory Orders Medication Instructions Recorded Confirmed Baclofen 20 mg PO BID 04/30/16 02/06/21 carBAMazepine [Carbatrol] 3 tab PO BID 03/18/18 02/06/21 Gabapentin 300 mg PO TID 01/24/20 02/06/21 Acyclovir 400 mg BID 01/25/20 02/06/21 Atorvastatin [Lipitor] 0 mg 02/06/21 Duloxetine HCl [Cymbalta] 60 mg QPM 02/06/21 02/06/21 HYDROcod/ACETAM 5/325 [[place] 5/325] 1 - 2 tab PO Q6H PRN #15 tablet 02/06/21 Lidocaine Patch 5% [Lidoderm Patch] 1 patch TOP DAILY PRN #10 patch 02/06/21 - Allergies Allergies/Adverse Reactions: Allergies Allergy/AdvReac Type Severity Reaction Status Date / Time Beta-Blockers Allergy Intermediate Hives Verified 02/06/21 14:53 (Beta-Adrenergic Bloc interferon beta-1a Allergy Unknown Verified 02/06/21 14:53 [From Avonex] - Social History Does the pt smoke?: No Smoking Status: Never smoker Does the pt have substance abuse?: No PD ED PE NORMAL - Vitals Vital signs reviewed: Yes - General General: Alert and oriented X 3, No acute distress - HEENT HEENT: PERRL, EOMI - Neck Neck: No bony TTP - Cardiac Cardiac: RRR, No murmur - Respiratory Respiratory: No respiratory distress, Clear bilaterally - Abdomen Abdomen: Non tender - Back Back: Other (Tender about T6 in the midline, also has a lot of pain around right posterior rib 8) - Derm Derm: Normal color, Warm and dry - Extremities Extremities: No deformity, No tenderness to palpate, Normal ROM s pain - Neuro Neuro: Alert and oriented X 3, Normal speech Results - Vitals Vitals: Vital Signs - 24 hr 02/06/21 14:47 Temperature 36.5 C Heart Rate 84 Respiratory 16 Rate Blood Pressure 148/81 H O2 Saturation 98 Oxygen O2 Source Room air - Rads (name of study) CT Head/Cspine/Chest Radiology: EMP read contemporaneously (NAD) PD MEDICAL DECISION MAKING - ED course ED course: Presents with persistent neck, head, and posterior rib pain after fall a week ago. Examination shows some tender spots but is otherwise unremarkable. CT imaging of the affected areas was negative. Departure - Departure Disposition: 01 Home, Self Care Clinical Impression: Fall Qualifiers: Encounter type: initial encounter Qualified Code(s): W19.XXXA - Unspecified fall, initial encounter Chest wall contusion Qualifiers: Encounter type: initial encounter Laterality: left Qualified Code(s): S20.212A - Contusion of left front wall of thorax, initial encounter Injury of neck Qualifiers: Encounter type: initial encounter Qualified Code(s): S19.9XXA - Unspecified injury of neck, initial encounter Head injuries Qualifiers: Encounter type: initial encounter Qualified Code(s): S09.90XA - Unspecified injury of head, initial encounter Condition: Good Instructions: ED Contusion Soft Tissue Prescriptions: Lidocaine Patch 5% [Lidoderm Patch] 1 patch TOP DAILY PRN #10 patch PRN Reason: pain HYDROcod/ACETAM 5/325 [[place] 5/325] 1 - 2 tab PO Q6H PRN #15 tablet PRN Reason: Pain Comments: Recheck with your doctor in a week if not improved. Return for new or worsening symptoms. Discharge Date/Time: 02/06/21 16:20
--- NOTE | 2021-02-06 15:54 | CT Report ---
PROCEDURE: HEAD WO INDICATIONS: Head injury TECHNIQUE: Noncontrast 4.5 mm thick angled axial sections acquired from the foramen magnum to the vertex. For r adiation dose reduction, the following was used: automated exposure control, adjustment of mA and/or kV according to patient size. COMPARISON: Head CT 06/14/2020 FINDINGS: Image quality: Excellent. CSF spaces: Basal cisterns are patent. No extra-axial fluid collections. Ventricles are normal in size and shape. Brain: No midline shift. No intracranial masses or hemorrhage. Gomez-white matter interface is norm al. Skull and face: Calvarium and visualized facial bones are intact, without suspicious lesions. Left scleral banding. Bilateral intraocular lens replacements. Orbital structures otherwise within normal limits. Sinuses: Visualized sinuses and mastoids are clear. IMPRESSION: No acute intracranial finding. Reviewed by: Christos Garcia MD on 02/06/2021 3:53 PM PDT Approved by: Christos Garcia MD on 02/06/2021 3:53 PM PDT Station ID: [id number]
--- NOTE | 2021-02-06 15:57 | CT Report ---
PROCEDURE: CHEST WO INDICATIONS: Fall, chest pain TECHNIQUE: Noncontrast 5 mm thick sections acquired from the pulmonary apices to the posterior costophrenic angl es. 7 mm thick coronal and sagittal MIP reformats were then acquired. For radiation dose reduction, the following was used: automated exposure control, adjustment of mA and/or kV according to patient size. COMPARISON: No pertinent prior study. FINDINGS: Image quality: Excellent. Lungs and pleura: No acute air space opacities. No pleural effusions or pneumothorax. Central and peripheral airways are patent and normal in caliber. Mediastinum: Heart size is normal. No pericardial effusion. No mediastinal adenopathy by size crit eria. Thoracic aorta and central pulmonary arteries are normal in size. Esophagus is normal in andrew kenia. No hiatal hernia. Bones and chest wall: Degenerative changes. No suspicious bony lesions. No vertebral body compressi on fractures. No axillary or supraclavicular adenopathy by size criteria. Abdomen: Visualized upper abdominal solid organs and bowel loops appear normal in the absence of con trast. IMPRESSION: No acute finding the chest. Reviewed by: Christos Garcia MD on 02/06/2021 3:55 PM PDT Approved by: Christos Garcia MD on 02/06/2021 3:55 PM PDT Station ID: [id number]
--- NOTE | 2021-02-06 15:59 | CT Report ---
PROCEDURE: CERVICAL SPINE WO INDICATIONS: neck injury TECHNIQUE: Noncontrast 3 mm thick sections acquired from the skull base to the T4 level. Sagittal and coronal r eformats were then constructed. For radiation dose reduction, the following was used: automated exp osure control, adjustment of mA and/or kV according to patient size. COMPARISON: Cervical spine MRI 11/23/2019 FINDINGS: Cervical vertebral body heights and alignment are maintained. Postsurgical changes of C3-C6 ACDF by m eans of anterior plate and screws with interbody devices. There is no acute complicating hardware fea tures demonstrated. Normal configuration of the craniocervical junction. There is no facet subluxatio n or dislocation. No evidence of acute cervical spine fracture. Regional unenhanced soft tissue struc tures of the neck demonstrate no acute abnormality. IMPRESSION: No CT evidence of acute traumatic cervical spine injury. Reviewed by: Christos Garcia MD on 02/06/2021 3:58 PM PDT Approved by: Christos Garcia MD on 02/06/2021 3:58 PM PDT Station ID: [id number]
== END 2021-02-06 16:20 | disposition home or self-care (01) ==
LOC: ED 14:44
DX: S20.212A Contusion of left front wall of thorax, initial encounter (principal); S19.9XXA Unspecified injury of neck, initial encounter; S09.90XA Unspecified injury of head, initial encounter; W01.198A Fall on same level from slipping, tripping and stumbling with subsequent striking against other object, initial encounter
CPT/HCPCS: 70450; 71250; 72125; 99284; A9270

== ENCOUNTER 2021-11-27 13:15 | Outpatient (CLI) | payer MEDICARE, OTHER ==
--- NOTE | 2021-11-27 14:48 | XRAY Report ---
PROCEDURE: Knee 4 View BILAT INDICATIONS: BILATERAL KNEE PAIN TECHNIQUE: 4 views of both knee(s) were acquired. COMPARISON: Left knee radiographs 05/13/2016. FINDINGS: Bones: No fractures or dislocations. Mild to moderate joint space narrowing in the medial compartmen ts. Small osteophytes. No suspicious bony lesions. Soft tissues: No joint effusion. No suspicious soft tissue calcifications. 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 Reviewed by: Cuong Solano MD on 11/27/2021 2:47 PM PST Approved by: Cuong Solano MD on 11/27/2021 2:47 PM PST Station ID: [id number]
== END 2021-11-27 13:16 | disposition home or self-care (01) ==
LOC: DI.N 13:15
PROVIDERS: ATTEND Radiology Diagnostic Radiology
DX: M17.0 Bilateral primary osteoarthritis of knee (principal)

== ENCOUNTER 2021-11-28 08:09 | Outpatient (CLI) | payer MEDICARE, OTHER ==
[2021-11-28 08:35] LABS: EOSINOPHILS # (AUTO) 0.2 10^3/uL (0.0-0.7); EOSINOPHILS % (AUTO) 4.1 %; HGB - HEMOGLOBIN 13.4 g/dL (12.0-16.0); LYMPHOCYTES # (AUTO) 1.8 10^3/uL (1.5-3.5); LYMPHOCYTES % (AUTO) 43.4 %; MEAN CORPUSCULAR HEMOGLOBIN 31.9 pg (27.0-31.0); MEAN CORPUSCULAR HGB CONC 32.7 g/dL (32.0-36.0); MEAN CORPUSCULAR VOLUME 97.6 fL (81.0-99.0); MEAN PLATELET VOLUME 10.1 fL (7.9-10.8); MONOCYTES # (AUTO) 0.3 10^3/uL (0.0-1.0); MONOCYTES % (AUTO) 7.8 %; NEUTROPHILS # (AUTO) 1.8 10^3/uL (1.5-6.6); NEUTROPHILS % (AUTO) 43.5 %; PLT - PLATELET COUNT 157 10^3/uL (130-450); RED CELL DISTRIBUTION WIDTH 12.3 % (12.0-15.0); WHITE BLOOD COUNT 4.1 x10^3/uL (4.8-10.8)
[2021-11-28 08:50] LABS: ALBUMIN 4.1 g/dL (3.2-5.5); ALBUMIN/GLOBULIN RATIO 1.5 (1.0-2.2); ALKALINE PHOSPHATASE 67 IU/L (42-121); ALT ALANINE AMINOTRANSFERASE 17 IU/L (10-60); AST ASPARTATE AMINOTRANSFERASE 20 IU/L (10-42); BILIRUBIN,TOTAL 0.6 mg/dL (0.2-1.0); BUN - BLOOD UREA NITROGEN 12 mg/dL (6-20); CARBON DIOXIDE - CO2 28 mmol/L (21-32); CHLORIDE 101 mmol/L (101-111); CHOL/HDL RATIO 2.7 (<4.4); CHOLESTEROL 174 mg/dL; CREATININE 0.6 mg/dL (0.4-1.0); GFR - MDRD 100 (>89); GLUCOSE 102 mg/dL (70-100); HDL CHOLESTEROL 65 mg/dL; LDL CHOLESTEROL,CALCULATED 96 mg/dL; LDL/HDL RATIO 1.5 (<4.4); POTASSIUM 4.3 mmol/L (3.5-5.0); SODIUM 138 mmol/L (135-145); TOTAL PROTEIN 6.9 g/dL (6.7-8.2); TRIGLYCERIDES 65 mg/dL; VLDL CHOLESTEROL 13 mg/dL
[2021-11-28 13:29] LABS: ESTIMATED AVERAGE GLUCOSE 111 mg/dL (70-100); HEMOGLOBIN A1c% 5.5 % (4.27-6.07)
== END 2021-11-28 08:10 | disposition home or self-care (01) ==
LOC: LAB 08:09
PROVIDERS: ATTEND Family Medicine
DX: E78.5 Hyperlipidemia, unspecified (principal); R73.01 Impaired fasting glucose; Z79.899 Other long term (current) drug therapy
CPT/HCPCS: 36415; 80053; 80061; 83036; 83721; 85025

== ENCOUNTER 2022-03-30 23:01 | Emergency (ER) | payer MEDICARE, OTHER ==
--- OUTSIDE RECORDS SUMMARY | 2022-03-30 23:26 | EXTERNAL MEDICAL SUMMARY RPT | Continuity of Care Document ---
:1955 Author Organization [facility] Address [address] [place] [address] Phone Care Team Providers Name Role Phone Scheidt Unavailable Unavailable Allergies No information. Encounters No information. Medications No information. Problems date description facility [id number] [facility] Results No information.
--- NOTE | 2022-03-30 23:42 | ED Physician Documentation ---
History of Present Illness - Stated complaint Stated Complaint: FALL,KNEE PX - Chief complaint Chief Complaint: Ext Problem - History obtained from History obtained from: Patient - Additonal information Additional information: Patient is a 66-year-old female with a history of lymphedema presenting for evaluation of bilateral knee pain after falling this morning at home. Patient was on a wood floor with regular socks and normally uses slippers when she was reaching into the freezer to get ice and started doing the splits. She initially hit her right knee on the ground and then hit her left knee. She was able to get up with assistance. She did not hit her head or injure elsewhere. She reports worsening pain in the left knee. Patient was on her way to [place] and got to the [facility] when she realized that she had left medications behind her house. She and her spouse turned around. Up pain has not improved with Tylenol. It is sharp and worse with movements. It does not radiate els ewhere. She reports meniscal injury to left knee in the past.Denies use of blood thinners. Review of Systems Constitutional: denies: Fever Nose: denies: Congestion Throat: denies: Sore throat Cardiac: denies: Chest pain / pressure Respiratory: denies: Dyspnea GI: denies: Abdominal Pain : denies: Dysuria Musculoskeletal: reports: Joint pain. 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 : None HEENT: Other Psych: None Musculoskeletal: None Derm: None - Past Surgical History Past Surgical History: Yes General: Cholecystectomy, Colonoscopy Ortho: Other Cardiovascular: Other HEENT: Cataracts, Detached retina repair - Present Medications Home Medications: Ambulatory Orders Medication Instructions Recorded Confirmed Baclofen 20 mg PO BID 04/30/16 02/06/21 carBAMazepine [Carbatrol] 3 tab PO BID 03/18/18 02/06/21 Gabapentin 300 mg PO TID 01/24/20 02/06/21 Acyclovir 400 mg BID 01/25/20 02/06/21 Atorvastatin [Lipitor] 0 mg 02/06/21 Duloxetine HCl [Cymbalta] 60 mg QPM 02/06/21 02/06/21 HYDROcod/ACETAM 5/325 [[place] 5/325] 1 - 2 tab PO Q6H PRN #15 tablet 02/06/21 Lidocaine Patch 5% [Lidoderm Patch] 1 patch TOP DAILY PRN #10 patch 02/06/21 Oxycodone HCl/Acetaminophen 1 each PO Q6H PRN #10 tablet 03/31/22 [Percocet 5-325 mg Tablet] - Allergies Allergies/Adverse Reactions: Allergies Allergy/AdvReac Type Severity Reaction Status Date / Time Beta-Blockers Allergy Intermediate Hives Verified 03/30/22 23:15 (Beta-Adrenergic Bloc interferon beta-1a Allergy Unknown Verified 03/30/22 23:15 [From Avonex] - Social History Does the pt smoke?: No Smoking Status: Never smoker Does the pt drink ETOH?: No Does the pt have substance abuse?: No - Immunizations Immunizations are current?: Yes - POLST Patient has POLST: No PD ED PE NORMAL - General General: Alert and oriented X 3, No acute distress, Well developed/nourished - HEENT HEENT: Atraumatic, Moist mucous membranes - Neck Neck: Supple, no meningeal sign, No bony TTP, C-Spine cleared by NEXUS criteria - Cardiac Cardiac: RRR, No murmur, Strong equal pulses - Respiratory Respiratory: No respiratory distress, Clear bilaterally - Abdomen Abdomen: Normal bowel sounds, Soft, Non tender - Back Back: No spinal TTP - Derm Derm: Normal color, No rash - Extremities Extremities: No deformity, Other (Distal pulses intact, tenderness to bilateral knees, no significant tenderness to bilateral thighs or more distally in the lower extremity, No laxity of knee joint noted on exam). No: No tenderness to palpate - Neuro Neuro: No motor deficit, No sensory deficit PD ED PE EXPANDED - Extremities ARIES LE visual: 1 - tenderness 2 - tenderness Results - Vitals Vitals: Vital Signs - 24 hr 03/30/22 03/31/22 03/31/22 23:13 00:19 00:47 Temperature 36.1 C L 36.3 C L Heart Rate 91 81 Respiratory 18 17 16 Rate Blood Pressure 114/73 116/71 O2 Saturation 95 98 Oxygen O2 Source Room air PD MEDICAL DECISION MAKING - ED course Complexity details: reviewed results, d/w patient ED course: Patient presenting for evaluation of bilateral knee pain status post fall. X- rays obtained with no fracture or dislocation. Distal pulses intact. Patient is able to bear weight. Offered a walker which she declined as she has 1 at home. Discussed continuing with supportive care and counseled on return precautions. Departure - Departure Disposition: Home, Self Care Clinical Impression: Strain of knee, bilateral Qualifiers: Encounter type: initial encounter Qualified Code(s): S86.911A - Strain of unspecified muscle(s) and tendon(s) at lower leg level, right leg, initial encounter Condition: Stable Instructions: ED Knee Pain UKO Prescriptions: Oxycodone HCl/Acetaminophen [Percocet 5-325 mg Tablet] 1 each PO Q6H PRN #10 tablet PRN Reason: pain Comments: Ligia - Your evaluated for pain to both of your knees after a fall today. Your x-rays did not show a broken or out of place bone. However you can still have injuries that are not seen on x-rays, especially in regards to ligaments, tendons or the meniscus in your knee. I have prescribed a short course of pain medication and sent this to the [facility] pharmacy in [place]. Please use ice, elevation and rest, the walker, And pain medication as needed. Please have close follow-up with your doctor. Please return to the emergency department with worsening pain, swelling or any concerns. I am prescribing a short course of narcotic pain medication for you. These are potentially dangerous and addictive medications that should be used carefully. These medications may constipate you. Take an uyjj-ljc-ipengzt stool softener (docusate) twice daily with plenty of water while taking these medications. If you go 24 hours without a bowel movement, take cgsy-onw-kumvyiw miralax, per package instructions. Do not drink or drive while taking these medications. If you received narcotic or sedating medications while in the emergency department, do not drive for 24 hours. Store this medication in a safe, secure place and out of reach of children. It is a violation of federal law to give or sell this medication to another p erson or to use in a manner other than prescribed. The ED will not refill narcotic prescriptions, including prescriptions lost or stolen. To dispose of unwanted medications: 1. [facility] at [address] in [place] has a medication drop box. They accept prescription medications (in pill form) Wednesday through Wednesday 9:00 a.m. to 5:00 p.m. 2. The [facility] [employer] accepts prescription medications (in pill form only) for disposal year round. Call for more information. 3. Contact the [facility] for the next [facility] sponsored prescription drug collection event. , [phone], or [phone]; Note that many narcotic pain relievers also contain Tylenol/acetaminophen. Please ensure that your total dose of acetaminophen from all sources does not exceed 3 g (3000 mg) per day. Discharge Date/Time: 03/31/22 01:21
--- NOTE | 2022-03-31 00:21 | XRAY Report ---
PROCEDURE: Knee 3 View BILAT INDICATIONS: fall/pain TECHNIQUE: 3 views of each knee were acquired. COMPARISON: 11/27/2021. FINDINGS: Bones: No fractures or dislocations. There is mild disc space narrowing within the medial compartmen ts bilaterally with subchondral sclerosis and mild osteophytosis. Mild osteophytosis is also demonstr ated along the medial patella facets laterally. No suspicious bony lesions. Soft tissues: No joint effusions. No suspicious soft tissue calcifications. IMPRESSION: 1. No fracture or dislocation. 2. Bilateral osteoarthritic changes within the medial compartments as well as medially in the patello femoral compartments. Reviewed by: Alfred Rose MD on 03/31/2022 12:20 AM PDT Approved by: Alfred Rose MD on 03/31/2022 12:20 AM PDT Station ID: [id number]
[2022-03-31] MEDS ORDERED: oxyCODONE/ACET 5/325 Prepack 4 PO STA (00:32)
[2022-03-31 00:48] VITALS: BP 116/71
== END 2022-03-31 01:21 | disposition home or self-care (01) ==
LOC: ED 23:01
DX: S86.912A Strain of unspecified muscle(s) and tendon(s) at lower leg level, left leg, initial encounter (principal); S86.911A Strain of unspecified muscle(s) and tendon(s) at lower leg level, right leg, initial encounter; W01.0XXA Fall on same level from slipping, tripping and stumbling without subsequent striking against object, initial encounter; Y93.89 Activity, other specified; Y92.000 Kitchen of unspecified non-institutional (private) residence as the place of occurrence of the external cause
CPT/HCPCS: 99282; 99283

== ENCOUNTER 2022-08-01 10:05 | Outpatient (CLI) | payer MEDICARE, OTHER ==
[2022-08-01 19:37] LABS: INR 1.6 (0.8-1.2); PT - PROTHROMBIN TIME 17.5 secs (9.9-12.6)
[2022-08-02 10:42] LABS: ESTIMATED AVERAGE GLUCOSE 91 mg/dL (70-100); HEMOGLOBIN A1c% 4.8 % (4.27-6.07)
== END 2022-08-01 10:06 | disposition home or self-care (01) ==
LOC: LAB.N 10:05
PROVIDERS: ATTEND Nurse Practitioner Family
DX: I48.0 Paroxysmal atrial fibrillation (principal)
CPT/HCPCS: 36415; 83036; 85610

== ENCOUNTER 2022-08-10 08:00 | Outpatient (CLI) | payer MEDICARE, OTHER | END 2022-08-10 23:59 | disposition home or self-care (01) | LOC: LAB.N 08:00 | PROVIDERS: ATTEND Nurse Practitioner Family | DX: Z79.01 Long term (current) use of anticoagulants (principal); I48.0 Paroxysmal atrial fibrillation ==

== ENCOUNTER 2022-08-14 08:00 | Outpatient (CLI) | payer MEDICARE, OTHER | END 2022-08-14 23:59 | disposition home or self-care (01) | LOC: LAB.WCP 08:00 | DX: Z79.01 Long term (current) use of anticoagulants (principal); I48.0 Paroxysmal atrial fibrillation; I82.91 Chronic embolism and thrombosis of unspecified vein ==

== ENCOUNTER 2022-08-19 08:00 | Outpatient (CLI) | payer MEDICARE, OTHER | END 2022-08-19 23:59 | disposition home or self-care (01) | LOC: LAB.WCP 08:00 | PROVIDERS: ATTEND Nurse Practitioner Family | DX: Z79.01 Long term (current) use of anticoagulants (principal); I48.0 Paroxysmal atrial fibrillation ==

== ENCOUNTER 2022-08-26 08:00 | Outpatient (CLI) | payer MEDICARE, OTHER | END 2022-08-26 23:59 | disposition home or self-care (01) | LOC: LAB.N 08:00 | PROVIDERS: ATTEND Nurse Practitioner Family | DX: Z79.01 Long term (current) use of anticoagulants (principal); I48.0 Paroxysmal atrial fibrillation ==

== ENCOUNTER 2022-09-15 14:58 | Outpatient (CLI) | payer MEDICARE, OTHER ==
--- NOTE | 2022-09-16 12:33 | XRAY Report ---
PROCEDURE: Shoulder 3 View LT INDICATIONS: L SHOULDER PX TECHNIQUE: 3 views of the shoulder were acquired. COMPARISON: Left shoulder radiographs 10/22/2015. FINDINGS: Bones: No fractures or dislocations. Moderate degenerative changes appreciated at the glenohumeral and acromioclavicular joints. Small spur at the undersurface of the left distal clavicle. No suspicio us bony lesions. Visualized ribs appear intact. Soft tissues: No suspicious soft tissue calcifications. IMPRESSION: Moderate left shoulder DJD. Consider MRI for further evaluation of the rotator cuff. Reviewed by: Cuong Solano MD on 09/16/2022 12:32 PM PDT Approved by: Cuong Solano MD on 09/16/2022 12:32 PM PDT Station ID: [id number]
== END 2022-09-15 14:59 | disposition home or self-care (01) ==
LOC: DI.N 14:58
PROVIDERS: ATTEND Nurse Practitioner Family
DX: M19.012 Primary osteoarthritis, left shoulder (principal)

== ENCOUNTER 2022-10-02 08:00 | Outpatient (CLI) | payer MEDICARE, OTHER | END 2022-10-02 23:59 | disposition home or self-care (01) | LOC: LAB.WCP 08:00 | PROVIDERS: ATTEND Nurse Practitioner Family | DX: Z79.01 Long term (current) use of anticoagulants (principal); I48.0 Paroxysmal atrial fibrillation ==

== ENCOUNTER 2022-10-09 08:00 | Outpatient (CLI) | payer MEDICARE, OTHER | END 2022-10-09 23:59 | disposition home or self-care (01) | LOC: LAB.WCP 08:00 | PROVIDERS: ATTEND Nurse Practitioner Family | DX: Z79.01 Long term (current) use of anticoagulants (principal); I48.0 Paroxysmal atrial fibrillation ==

== ENCOUNTER → 2022-11-06 | Outpatient (CLI) | payer MEDICARE, OTHER | LOC: LAB.WCP 08:00 | PROVIDERS: ATTEND Family Medicine | DX: Z79.01 Long term (current) use of anticoagulants (principal); I48.0 Paroxysmal atrial fibrillation ==

== ENCOUNTER 2022-11-27 14:06 | Outpatient (CLI) | payer MEDICARE, OTHER ==
--- NOTE | 2022-11-27 17:11 | MRI Report ---
PROCEDURE: SHOULDER WO - LT INDICATIONS: LEFT SHOULDER PAIN TECHNIQUE: Noncontrast oblique coronal T2 fast spin echo with fat saturation, oblique sagittal T1 spin echo and T2 fast spin echo with fat saturation, axial T1 spin echo and T2 fast spin echo with fat saturation t hrough the shoulder. COMPARISON: Shoulder radiograph dated 09/15/2022. FINDINGS: Image quality: Diagnostic. Significant patient motion is noted. Rotator cuff: Tendinosis and low to moderate grade articular and bursal surface partial-thickness tea r involving distal supraspinatus at its insertion on humeral head is seen extending to musculotendino us junction. Distal infraspinatus and subscapularis tendinosis is seen. No full-thickness rotator cuf f tendon rupture. Mild supraspinatus muscle atrophy is noted on sagittal images. Bones and bursae: Moderate acromioclavicular joint joint osteoarthritic changes are seen with joint s pace narrowing, subchondral sclerosis and downward osteophyte formation depressing on musculotendinou s junction of supraspinatus. Moderate glenohumeral joint osteoarthritic changes also seen with signif icant joint space narrowing and subchondral sclerosis. No fracture or dislocation. No suspicious intr aosseous lesion. Nonspecific subcortical cyst formation in greater tuberosity of humeral head near ro tator cuff tendon insertion is noted. Nonspecific subcortical cystic area involving superior glenoid is also seen. There is small amount of subacromial subdeltoid bursal fluid. Capsule and soft tissues: Extensive signal abnormality and contour irregularity involving superior an terior labrum at 12 to 2:00 position is seen suggestive of superior anterior labral tear. The long he ad of the biceps tendon appears thickened intra-articularly. The rotator interval appears normal, wi thout fibrosis. The coracohumeral ligament is normal in thickness. IMPRESSION: 1. Slightly degraded study due to patient motion. 2. Tendinosis and low to moderate grade articular and bursal surface partial-thickness tear involving distal supraspinatus extending to musculotendinous junction. Distal infraspinatus and subscapularis tendinosis. No full-thickness rotator cuff tendon rupture. Mild supraspinatus muscle atrophy. 3. Moderate acromioclavicular joint and glenohumeral joint osteoarthritis. No fracture or dislocation . Small amount of joint effusion and subacromial subdeltoid bursal fluid. 4. Suggestion of superior anterior labral tear at 12 to 2:00 position. 5. Proximal intra-articular portion of long head of biceps tendinosis. Reviewed by: Trey Amor MD on 11/27/2022 5:09 PM PST Approved by: Trey Amor MD on 11/27/2022 5:09 PM PST Station ID: [id number]
== END 2022-11-27 14:07 | disposition home or self-care (01) ==
LOC: DI 14:06
PROVIDERS: ATTEND Nurse Practitioner Family
DX: M19.012 Primary osteoarthritis, left shoulder (principal); M75.112 Incomplete rotator cuff tear or rupture of left shoulder, not specified as traumatic; M25.412 Effusion, left shoulder; M75.82 Other shoulder lesions, left shoulder; M18.11 Unilateral primary osteoarthritis of first carpometacarpal joint, right hand; Z91.81 History of falling

== ENCOUNTER 2022-11-27 14:08 | Outpatient (CLI) | payer MEDICARE, OTHER ==
--- NOTE | 2022-11-27 15:54 | XRAY Report ---
PROCEDURE: Wrist 3 View RT INDICATIONS: HISTORY OF Falling, pain IN RIGHT WRIST TECHNIQUE: 3 views of the wrist were acquired. COMPARISON: None. FINDINGS: Bones: No fractures or dislocations. Advanced osteoarthritis first CMC joint. No suspicious bony le sions. Bones appear osteopenic. Soft tissues: No suspicious soft tissue calcifications. IMPRESSION: No fracture identified. Advanced osteoarthritis at the first CMC joint. Reviewed by: Cuong Solano MD on 11/27/2022 3:53 PM PST Approved by: Cuong Solano MD on 11/27/2022 3:53 PM PST Station ID: [id number]
== END 2022-11-27 14:09 | disposition home or self-care (01) ==
LOC: DI 14:08
PROVIDERS: ATTEND Nurse Practitioner Family
DX: M18.11 Unilateral primary osteoarthritis of first carpometacarpal joint, right hand (principal); Z91.81 History of falling

== ENCOUNTER → 2022-12-21 | Outpatient (CLI) | payer MEDICARE, OTHER | LOC: LAB.WCP 08:00 | PROVIDERS: ATTEND Nurse Practitioner Family | DX: Z79.01 Long term (current) use of anticoagulants (principal); I48.0 Paroxysmal atrial fibrillation ==

== ENCOUNTER 2022-12-23 09:17 | Outpatient (CLI) | payer MEDICARE, OTHER ==
[2022-12-23 12:03] LABS: BASOPHILS % (AUTO) 0.7 %; EOSINOPHILS # (AUTO) 0.2 10^3/uL (0.0-0.7); EOSINOPHILS % (AUTO) 3.8 %; HCT - HEMATOCRIT 41.3 % (37.0-47.0); HGB - HEMOGLOBIN 12.8 g/dL (12.0-16.0); LYMPHOCYTES # (AUTO) 1.5 10^3/uL (1.5-3.5); LYMPHOCYTES % (AUTO) 33.9 %; MEAN CORPUSCULAR HEMOGLOBIN 31.1 pg (27.0-31.0); MEAN CORPUSCULAR VOLUME 100.2 fL (81.0-99.0); MEAN PLATELET VOLUME 11.5 fL (7.9-10.8); MONOCYTES # (AUTO) 0.4 10^3/uL (0.0-1.0); MONOCYTES % (AUTO) 9.1 %; NEUTROPHILS # (AUTO) 2.4 10^3/uL (1.5-6.6); NEUTROPHILS % (AUTO) 52.5 %; PLT - PLATELET COUNT 179 10^3/uL (130-450); RED BLOOD COUNT 4.12 10^6/uL (4.20-5.40); RED CELL DISTRIBUTION WIDTH 12.8 % (12.0-15.0); WHITE BLOOD COUNT 4.5 x10^3/uL (4.8-10.8)
[2022-12-23 12:29] LABS: ALBUMIN 3.7 g/dL (3.2-5.5); ALBUMIN/GLOBULIN RATIO 1.1 (1.0-2.2); ALKALINE PHOSPHATASE 92 IU/L (42-121); ALT ALANINE AMINOTRANSFERASE 23 IU/L (10-60); AST ASPARTATE AMINOTRANSFERASE 22 IU/L (10-42); BILIRUBIN,TOTAL 0.5 mg/dL (0.2-1.0); BUN - BLOOD UREA NITROGEN 18 mg/dL (6-20); CALCIUM 8.9 mg/dL (8.5-10.3); CARBON DIOXIDE - CO2 26 mmol/L (21-32); CHLORIDE 104 mmol/L (101-111); CHOL/HDL RATIO 3.4 (<4.4); CHOLESTEROL 171 mg/dL; CREATININE 0.6 mg/dL (0.4-1.0); GFR - MDRD 99 (>89); GLUCOSE 101 mg/dL (70-100); HDL CHOLESTEROL 50 mg/dL; LDL CHOLESTEROL,CALCULATED 99 mg/dL; POTASSIUM 4.3 mmol/L (3.5-5.0); SODIUM 139 mmol/L (135-145); TOTAL PROTEIN 7.1 g/dL (6.7-8.2); TRIGLYCERIDES 111 mg/dL; VLDL CHOLESTEROL 22 mg/dL
[2022-12-23 12:32] LABS: THYROID STIMULATING HORMONE 2.22 uIU/mL (0.34-5.60)
== END 2022-12-23 09:18 | disposition home or self-care (01) ==
LOC: LAB.N 09:17
PROVIDERS: ATTEND Nurse Practitioner Family
DX: E78.5 Hyperlipidemia, unspecified (principal); E66.01 Morbid (severe) obesity due to excess calories; R73.01 Impaired fasting glucose
CPT/HCPCS: 36415; 80053; 80061; 83721; 84443; 85025

== ENCOUNTER 2023-01-18 08:00 | Outpatient (CLI) | payer MEDICARE, OTHER | END 2023-01-18 08:01 | disposition home or self-care (01) | LOC: LAB.N 08:00 | PROVIDERS: ATTEND Nurse Practitioner Family | DX: Z79.01 Long term (current) use of anticoagulants (principal); I48.0 Paroxysmal atrial fibrillation ==

== ENCOUNTER 2023-01-25 11:34 | Outpatient (CLI) | payer MEDICARE, OTHER | END 2023-01-25 11:35 | disposition home or self-care (01) | LOC: LAB.N 11:34 | PROVIDERS: ATTEND Nurse Practitioner Family | DX: Z79.01 Long term (current) use of anticoagulants (principal); I48.0 Paroxysmal atrial fibrillation | CPT/HCPCS: 36416; 85610 ==

== ENCOUNTER 2023-05-26 13:21 | Outpatient (CLI) | payer MEDICARE, OTHER ==
--- NOTE | 2023-05-26 16:55 | Ultrasound Report ---
PROCEDURE: Ext Limited Non Vascular INDICATIONS: PAIN IN RIGHT KNEE TECHNIQUE: Real-time scanning was performed of the right leg, with image documentation. COMPARISON: None. FINDINGS: Focused ultrasound examination of posterior right knee at patient's reported area of palpable lump sh ows 5 x 2.1 x 2.3 cm hypoechoic collection in posterior medial right knee soft tissue and show no int ernal vascularity. IMPRESSION: Finding is suggestive of a 5 x 2.1 x 2.3 cm Powers's cyst in posterior medial right knee. Reviewed by: Trey Amor MD on 05/26/2023 4:53 PM PDT Approved by: Trey Amor MD on 05/26/2023 4:53 PM PDT Station ID: [id number]
--- NOTE | 2023-05-26 16:55 | Ultrasound Report ---
PROCEDURE: Duplex Ext Veins Right INDICATIONS: PAIN IN RIGHT KNEE TECHNIQUE: Real-time imaging, as well as color and pulse Doppler interrogation, were performed of the lower extr emity deep veins from the inguinal ligament to the popliteal fossa. COMPARISON: None. FINDINGS: The deep veins are normally compressible, and free of intraluminal thrombus. Color and pu lse Doppler demonstrate normal phasic intraluminal flow. There is normal augmentation response to di stal compression maneuver. IMPRESSION: No evidence of DVT in visualized right lower extremity veins. Reviewed by: Trey Amor MD on 05/26/2023 4:54 PM PDT Approved by: Trey Amor MD on 05/26/2023 4:54 PM PDT Station ID: [id number]
== END 2023-05-26 13:22 | disposition home or self-care (01) ==
LOC: DI 13:21
PROVIDERS: ATTEND Nurse Practitioner Family
DX: M25.561 Pain in right knee (principal)

== ENCOUNTER 2023-07-08 12:58 | Outpatient (CLI) | payer MEDICARE, OTHER ==
--- NOTE | 2023-07-08 13:45 | Sleep Patient Instructions ---
Sleep Center Visit Summary - Patient Visit Information Reason for Visit: Initial consult for evaluation of sleep disordered breathing and other sleep issues. - Patient Instructions Instructions Attached: Sleep Study, Sleep Clinic Visit Additional Instructions: You will be completing a sleep study, either an in-lab polysomnography (PSG) or home sleep study (HST). You will follow-up in the sleep care office after the sleep study is completed to hear the results and talk about therapy, if needed. You will be called by our office staff to schedule this appointment, but you may contact us with any questions. - Clinic Information Contact: [facility] [address] [place] [address] [email or web address] T: [phone]
--- NOTE | 2023-07-08 13:51 | SLEEP CARE CONSULTATION ---
Information from patient questionnaire entered by Fernanda Addison. I have reviewed and concur with the information entered by Fernanda Addison. This document represents the service I personally performed and the decisions made by me, Stephany Oscar ARNP. History of Present Illness Service Date and Time: 07/08/2023 1258 Reason for Visit: New patient Accompanied by: Spouse (Jorge) Chief Complaint: reports: Excessive daytime sleepiness, Fatigue Date of Onset: YRS Usual bedtime: 10 PM Time it takes to fall asleep: 1-2MIN Snores at night: Yes Observed to quit breathing while asleep: No Sleeps alone due to snoring: No Number of times waking at night: 2 Reasons for waking at night: reports: Pain, Bathroom. denies: Choking, Snoring, Gasping for air Toss, Turn, or Twitch while sleeping: No Recalls having dreams: Yes ( ) Usually gets out of bed at: 7-8 AM Feels refreshed in the morning: No (1/2 the time) Morning headache: No Sleepy or fatigued during the day: Yes Ever fallen asleep while driving: No Takes day naps: Yes (3-4 days a week; 30 minutes to 2 hr) Dreams during day naps: No Prior sleep studies: No Additional HPI information: I had the pleasure of seeing ANETTE WRIGHT today regarding the possibility of her having a sleep disorder. Her current complaints are excessive daytime sleepiness and fatigue. She is accompanied by her , Jorge. She was referred by her primary provider because she is tired during the day. She states that has had neck surgeries, has spinal issues and had to sleep sitting up, sometimes in her recliner. She takes medication for her MS, gabapentin and baclofen, which make her sleepy during the day. She and her say she does snore but denies any pauses in breathing. She cannot sleep flat because her sinuses gets clogged up and she can't breathe. Her bed elevates the head of her bed. She states she wakes up feeling rested only half the time. She is sleepy during the day, but thinks this is partially due to her medications. She will take a nap 3-4 days a week. 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 Patient is and lives in [place]. Have you smoked in the past 12 months: No Alcohol use: No Caffeine use: Yes Caffeine amount and frequency: 2 CUPS EVERY MORNING Family History Family history of sleep disordered breathing: No Allergies and Home Medications Known drug allergies: Yes (as listed) Drug allergies reviewed: Yes Home medication list reviewed: Yes (see updated list in EMR) Allergy and home medication list: Allergies Beta-Blockers (Beta-Adrenergic Bloc Allergy (Intermediate, Verified 07/07/23 09:19) Hives interferon beta-1a [From Avonex] Allergy (Verified 07/07/23 09:19) Unknown Review of Systems Weight loss over past 5 years: 20 Cardiovascular: reports: irregular heart rate or pulse, leg or foot swelling, have to sleep sitting up. denies: high blood pressure Gastrointestinal: denies: heartburn Urinary: reports: incontinence Neurological: denies: headaches Psychiatric: denies: anxiety, depression Ear/Nose/Throat: reports: wisdom teeth removed. denies: tonsillectomy Endocrine: reports: sluggishness Musculoskeletal: reports: back pain Physical Exam Vital signs obtained and entered by: FERNANDA Garcia MA Blood Pressure: 132/80 (LEFT ARM) Cuff size: long Heart Rate: 52 O2 Saturation: 95 Height: 5 ft 3 in Weight: 230 lb 6.4 oz Body Mass Index: 40.8 BMI Classification: Morbidly Obese Neck circumference: 14.5 Mouth and throat: narrow oropharynx Soft palate: long Hard palate: normal Uvula: normal Uvula visualization: 25% Mallampati Class III Tongue: enlarged in size with teeth goodman on lateral edges Tonsils: small Neck: normal w/o lymphadenopathy or thyromegaly Heart: irregular rhythm Lungs: clear bilaterally Impression and Plan 1. Suspected Obstructive Sleep Apnea-Hypopnea Syndrome, as suggested by a history of loud and irregular snoring, excessive daytime sleepiness and unrefreshed sleep. She has a history of atrial fibrillation and strokes. Narrow oropharynx and obesity are common predisposing factors for obstructive sleep apnea-hypopnea syndrome. I recommend proceeding to polysomnography to confirm the diagnosis and to assess severity. If the patient has significant sleep disordered breathing, a manual CPAP titration study will also be performed to find the optimal treatment pressure. I informed the patient of what the sleep studies involve and after some discussion, obtained agreement to proceed. The pathophysiology of obstructive sleep apnea-hypopnea syndrome was discussed with the patient and health risks of cardiovascular and cerebrovascular disease if not treated. Risks of drowsy driving discussed in detail and patient advised to avoid long distance driving and to tap puller at the first sign of drowsiness. Patient agreed to plan. * Schedule polysomnography. * Avoid long distance driving or driving when feeling sleepy. * Avoid alcohol, sedative and muscle relaxant around bedtime. * Attempt to lose weight. * Review instructions provided by trained office staff on how to prepare for the sleep study. * Return for follow-up after sleep study completed. Counseling Topics: Weight loss health impact Visit Type: In Office Time Spent with Patient (minutes): 32 Provider Statement: I spent 100% of the Face to Face Visit with the patient with greater than 50% spent counseling the patient and coordination of care.
[2023-07-08 14:14] VITALS: BP 132/80; O2SAT 95
== END 2023-07-08 12:59 | disposition home or self-care (01) ==
LOC: SC 12:58
PROVIDERS: ATTEND Nurse Practitioner Family
DX: G47.10 Hypersomnia, unspecified (principal); R06.83 Snoring; G47.8 Other sleep disorders; Z86.79 Personal history of other diseases of the circulatory system; E66.01 Morbid (severe) obesity due to excess calories; Z68.41 Body mass index [BMI] 40.0-44.9, adult; G35 Multiple sclerosis; Z79.899 Other long term (current) drug therapy; R53.83 Other fatigue
CPT/HCPCS: 99203; G0463; 99212

== ENCOUNTER 2023-08-27 20:39 | Outpatient (CLI) | payer MEDICARE, OTHER | END 2023-08-27 20:40 | disposition home or self-care (01) | LOC: SC 20:39 | PROVIDERS: ATTEND Nurse Practitioner Family | DX: G47.33 Obstructive sleep apnea (adult) (pediatric) (principal); G47.61 Periodic limb movement disorder; I48.91 Unspecified atrial fibrillation | CPT/HCPCS: 95810 ==

== ENCOUNTER 2023-11-05 14:44 | Outpatient (CLI) | payer MEDICARE, OTHER ==
--- NOTE | 2023-11-05 15:25 | SLEEP CARE CONSULTATION ---
Information from patient questionnaire entered by Fernanda Addison. I have reviewed and concur with the information entered by Fernanda Addison. This document represents the service I personally performed and the decisions made by , Stephany Oscar ARNP. History of Present Illness Service Date and Time: 11/05/2023 1444 Previous diagnosis: Moderate, Obstructive Sleep Apnea-Hypopnea Syndrome AHI: 24.8 (08/2023) Reason for follow up: first compliance Accompanied by: Spouse (Ray) Equipment type: CPAP (RESMED Airsense 11; 09/2023) Equipment obtained from: Other ([facility]) Mask style: Full face Mask brand: Respironics (Dreamwear) Backup mask available: No Last cushion change: 2 days Prior sleep studies: No Type of Sleep Study: Polysomnography (COMPLETED 08/27/23) HPI additional information: ANETTE WRIGHT was diagnosed to have moderate, AHI 24.8, obstructive sleep apnea- hypopnea syndrome and returned today for CPAP therapy first compliance follow- up. Sleep Study - Results Type of Sleep Study: Polysomnography (COMPLETED 08/27/23) Prior sleep studies: No CPAP Compliance Data - Data Reviewed with Patient Average duration of nightly device use: 7 HRS 0 MINS Compliance rate %: 87 (09/27/23-10/26/23; 26/30 days used) Current pressure setting (cmH2O): 4-15 (median 11.6, avg 14.6, max 14.8) Average residual AHI: 22.2 Central apnea: 4.8 Obstructive apnea: 12 Hypopnea: 5.3 Subjective Patient concerns: reports: mask discomfort. denies: aerophagia, air blowing in eyes, mask leak noise, condensation in mask/hose, nasal congestion, dry mouth, nose, throat, epistaxis Observed to snore while using device: No Current pressure setting perceived as: comfortable On therapy, patient: reports: sleeping better, awakening more refreshed, being more awake and alert during the day. denies: drowsiness while driving Initial [place] Sleepiness Scale score: 7 (07/08/23) Current [place] Sleepiness Scale score: 7 (11/05/23) Allergies and Home Medications Known drug allergies: Yes (as listed) Drug allergies reviewed: Yes Home medication list reviewed: Yes (no changes) Allergy and home medication list: Allergies Beta-Blockers (Beta-Adrenergic Bloc Allergy (Intermediate, Verified 11/04/23 10 :54) Hives interferon beta-1a [From Avonex] Allergy (Verified 11/04/23 10:54) Unknown Review of Systems Review of systems same as previous: Yes (NO CHANGE) Physical Exam Vital signs obtained and entered by: FERNANDA Garcia MA Blood Pressure: 142/58 (RIGHT ARM) Cuff size: long Heart Rate: 42 O2 Saturation: 97 Height: 5 ft 3.5 in (PER PT) Weight: 233 lb 12.8 oz Body Mass Index: 40.7 BMI Classification: Morbidly Obese Impression and Plan 1. Obstructive Sleep Apnea-Hypopnea Syndrome, moderate, with good treatment compliance and fair apnea control with elevated residual AHI. On CPAP therapy, the patient has better sleep quality and is more rested overall. She did not l tosha the fullface mask that went over the bridge of her nose because it caused a lot of pain. She went back to her DME and they got her a hybrid fullface mask, DreamWear, that is working much better for the last couple of nights. The patients pressure will be changed to autoCPAP 14-18 cmH20 for elevation of residual AHI. Patient advised to contact me if pressure change is uncomfortable so that it can be adjusted. Goals for apnea control discussed. Patient's apnea severity and rationale for treatment to reduce apnea, improve sleep quality and reduce cardiovascular and cerebrovascular events was reviewed. I also reviewed the benefit of consistent device use of CPAP for cerebrovascular disease, arrhythmia and fibromyalgia. 2. Obesity, unspecified. Currently patients BMI is 40.7. Obesity increases the risk of apnea, CPAP pressure requirements and overall health risks especially cardiovascular and diabetes. Thus patient is advised to lose weight. 3. Bradycardia. Patient comes in for her CPAP follow-up but is showing some bradycardia with her heart rate in the 40s. She states she tripped and "face planted" last night around 8 PM. She says she did not go to the ED or have EMS come to her house to check her out because she thought she was fine. She is complaining of some right sided upper chest discomfort but denies shortness of breath. Her heart rate stayed in the 40s but fluctuated up to the 80s with increase in chest pain. I advised her that she should seek evaluation in the emergency department as soon as she is able and she agreed. I offered to call EMS services but she declined and her who accompanied her to day is to take her to the hospital emergency room straight from this appointment. He stated he felt comfortable taking her in his car. * Patient to go to ED straight after appointment for evaluation of her chest discomfort and bradycardia * Change auto CPAP pressure to 14-18 cmH2O * Notify me if snoring with mask or feeling that the pressure is too much or too little * Attempt to lose weight * Call this office if any problems using CPAP * Return for follow up in 1-2 months, or sooner if concerns arise Counseling Topics: Weight loss health impact Visit Type: In Office Time Spent with Patient (minutes): 15 Provider Statement: I spent 100% of the Face to Face Visit with the patient with greater than 50% spent counseling the patient and coordination of care.
[2023-11-05 15:26] VITALS: BP 142/58; O2SAT 97
== END 2023-11-05 14:45 | disposition home or self-care (01) ==
LOC: SC 14:44
PROVIDERS: ATTEND Nurse Practitioner Family
DX: G47.33 Obstructive sleep apnea (adult) (pediatric) (principal); R00.1 Bradycardia, unspecified; R07.9 Chest pain, unspecified; E66.01 Morbid (severe) obesity due to excess calories; Z68.41 Body mass index [BMI] 40.0-44.9, adult
CPT/HCPCS: 99212; G0463

== ENCOUNTER 2023-11-05 15:52 | Emergency (ER) | payer MEDICARE, OTHER ==
--- NOTE | 2023-11-05 16:15 | ED Physician Documentation ---
History of Present Illness - Stated complaint Stated Complaint: LOW HR/R HAND PX - Chief complaint Chief Complaint: Cardiac - History obtained from History obtained from: Patient - Additonal information Additional information: 68-year-old woman with history of A-fib on warfarin and history of stroke. She is also had a left carotid endarterectomy and a right shoulder replacement. Last night she was bringing dinner and and had a simple mechanical trip and fall onto her right side and hurt her right wrist and chest. It hurts to take a deep breath. She is not short of breath. Then she went to the sleep center and they noted her heart rate was low and was referred here for further evaluation and treatment. She is not feeling weak or dizzy or short of breath. She denies head injury. PD PAST MEDICAL HISTORY - Past Medical History Cardiovascular: None Respiratory: None Neuro: None Endocrine/Autoimmune: None GI: GERD SEA KAYAKING GUIDE: None : None HEENT: Other Psych: None Musculoskeletal: None Derm: None - Past Surgical History Past Surgical History: Yes General: Cholecystectomy, Colonoscopy Ortho: Other Cardiovascular: Other HEENT: Cataracts, Detached retina repair - Present Medications Home Medications: Ambulatory Orders Medication Instructions Recorded Confirmed Baclofen 20 mg PO BID 04/30/16 11/05/23 carBAMazepine [Carbatrol] 3 tab PO BID 03/18/18 11/05/23 Gabapentin 300 mg PO TID 01/24/20 11/05/23 Acyclovir 400 mg BID 01/25/20 11/05/23 Atorvastatin [Lipitor] See Rx Instructions .ROUTE .COMPLEX 02/06/21 11/05/23 Duloxetine HCl [Cymbalta] 60 mg QPM 02/06/21 11/05/23 Oxycodone HCl/Acetaminophen 1 each PO Q6H PRN #10 tablet 03/31/22 11/05/23 [Percocet 5-325 mg Tablet] Aspirin [Vazalore] See Rx Instructions .ROUTE .COMPLEX 07/08/23 11/05/23 Melatonin See Rx Instructions .ROUTE .COMPLEX 07/08/23 11/05/23 Tylenol Pm See Rx Instructions .ROUTE .COMPLEX 07/08/23 11/05/23 Warfarin [Coumadin] See Rx Instructions .ROUTE .COMPLEX 07/08/23 11/05/23 diphenhydrAMINE [Benadryl] See Rx Instructions .ROUTE .COMPLEX 07/08/23 11/05/23 Oxycodone HCl/Acetaminophen 1 - 2 each PO Q6H PRN #14 tablet 11/05/23 [Percocet 5-325 mg Tablet] - Allergies Allergies/Adverse Reactions: Allergies Allergy/AdvReac Type Severity Reaction Status Date / Time Beta-Blockers Allergy Intermediate Hives Verified 11/05/23 14:53 (Beta-Adrenergic Bloc interferon beta-1a Allergy Unknown Verified 11/05/23 14:53 [From Avonex] - Social History Does the pt smoke?: No Smoking Status: Never smoker Does the pt drink ETOH?: No Does the pt have substance abuse?: No - Immunizations Immunizations are current?: Yes - POLST Patient has POLST: No PD ED PE NORMAL - Vitals Vital signs reviewed: Yes - General General: Alert and oriented X 3, No acute distress - Neck Neck: Supple, no meningeal sign - Cardiac Cardiac: Other (Regularly irregular without murmur) - Respiratory Respiratory: No respiratory distress, Clear bilaterally, Other (Quite tender around rib 8 or so just lateral to the right costal margin anteriorly) - Abdomen Abdomen: Normal bowel sounds, Soft, Non tender - Extremities Extremities: Other (Tender to the mid carpals of the right wrist, but not the scaphoid. Relatively painless range of motion.) - Neuro Neuro: Alert and oriented X 3, Normal speech Results - Vitals Vitals: Vital Signs - 24 hr 11/05/23 11/05/23 11/05/23 15:59 17:53 18:23 Temperature 36.5 C 36.2 C L Heart Rate 45 L 70 75 Respiratory 18 18 18 Rate Blood Pressure 145/64 H 147/76 H 152/83 H O2 Saturation 96 99 98 Oxygen O2 Source Room air - EKG (time done) 1612 EKG releavant findings:: EKG personally interpreted by author of this note. Relevant findings are: Rate: Rate (enter#) (78) Rhythm: NSR (With ventricular bigeminy) [place]: Normal Intervals: Normal [place] QRS: Normal Ischemia: Non specific changes Computer interpretation: Agree with computer - Labs Labs: Laboratory Tests 11/05/23 11/05/23 11/05/23 16:18 16:18 16:18 WBC 4.6 L RBC 4.04 L Hgb 12.9 Hct 40.3 MCV 99.8 H MCH 31.9 H MCHC 32.0 RDW 12.3 Plt Count 161 MPV 10.6 Neut # (Auto) 2.5 Lymph # (Auto) 1.5 [place] # (Auto) 0.5 Eos # (Auto) 0.1 Baso # (Auto) 0.0 Absolute Nucleated RBC 0.00 Nucleated RBC % 0.0 PT 21.1 H INR 2.0 H Sodium 141 Potassium 4.3 Chloride 107 Carbon Dioxide 29 Anion Gap 5.0 L BUN 18 Creatinine 0.7 Estimated GFR (MDRD) 83 L Glucose 97 Calcium 8.9 Magnesium 1.7 Total Bilirubin 0.3 AST 18 ALT 17 Alkaline Phosphatase 81 Total Protein 6.6 Albumin 4.2 Globulin 2.4 Albumin/Globulin Ratio 1.8 TSH 2.95 - Rads (name of study) 4 view x-ray of the right wrist negative for fracture Relevant Findings:: Final report received, EMP independent interpretation of test PD Medical Decision Making - ED course ED course: She had a mechanical fall with a wrist injury and anterior chest injury. Relevant x-rays/CT were negative for traumatic findings. Did discuss with her the finding of extensive coronary calcifications in the LAD and gave her a copy of the EKG and the CT read. They already have a follow-up appointment with her failure analysis technician on Wednesday. Otherwise workup in the emergency department demonstrated an unremarkable CBC, CMP, and a therapeutic INR 2.0 on warfarin.She does have a history of A-fib. Was noted to have a low heart rate in the clinic but on a pulse oximeter and here is in ventricular bigeminy which would explain that. She has no symptoms attributable to an arrhythmia such as syncope/presyncope/shortness of breath. Departure - Departure Disposition: 01 Home, Self Care Clinical Impression: Bigeminy, Adequate anticoagulation on anticoagulant therapy Chest wall contusion Qualifiers: Encounter type: initial encounter Laterality: right Qualified Code(s): S20.211A - Contusion of right front wall of thorax, initial encounter Right wrist sprain Qualifiers: Encounter type: initial encounter Qualified Code(s): S63.501A - Unspecified sprain of right wrist, initial encounter Condition: Good Record reviewed to determine appropriate education?: Yes Instructions: ED Contusion Chest Wall, ED Sprain Wrist Prescriptions: Oxycodone HCl/Acetaminophen [Percocet 5-325 mg Tablet] 1 - 2 each PO Q6H PRN #14 tablet PRN Reason: pain Comments: As discussed, your electrical heart rate is actually normal, but since every other beat is an early beat, some types of cardiac monitors, especially those that would use pulse oximetry, would be an accurate and measure the heart rate at approximately half of what it actually is. Take EKG and follow-up with your failure analysis technician on Wednesday as scheduled for that, but that is not considered to be an acutely dangerous condition. As discussed the the CAT scan of your chest showed no acute traumatic findings. The wrist x-ray also. Labs were notable for an INR of 2 which is fine. I sent a prescription for oxycodone to [facility]. Call your doctor to arrange a follow- up appointment, make the next available appointment. In the interim, return anytime if worse or if new symptoms develop. I am prescribing a short course of narcotic pain medication for you. These are potentially dangerous and addictive medications that should be used carefully. These medications may constipate you. Take an ofge-uvb-rjrzmef stool softener (docusate) twice daily with plenty of water while taking these medications. If you go 24 hours without a bowel movement, take rycf-owy-jnhokjt miralax, per package instructions. Do not drink or drive while taking these medications. If you received narcotic or sedating medications while in the emergency department, do not drive for 24 hours. Store this medication in a safe, secure place and out of reach of children. It is a violation of federal law to give or sell this medication to another person or to use in a manner other than prescribed. The ED will not refill narcotic prescriptions, including prescriptions lost or stolen. To dispose of unwanted medications: 1. [facility] provides a drop box for medication in pill form only (no liquids) 8:00 am to 4:30 p.m. Wednesday-Wednesday in the lobby of the [facility], [address] [place] [address]. Empty pills into ziplock bag before disposal. Call [phone] for information. 2.[employer] is a free service available to all [facility] residents. Go to [email or web address] Note that many narcotic pain relievers also contain Tylenol/acetaminophen. Please ensure that your total dose of acetaminophen from all sources does not exceed 3 g (3000 mg) per day. Forms: PCP List
[2023-11-05] MEDS ORDERED: HYDROcod/ACETAM 5/325 MG TABLET PO STA (16:23)
[2023-11-05 16:25] LABS: BASOPHILS % (AUTO) 0.6 %; EOSINOPHILS # (AUTO) 0.1 10^3/uL (0.0-0.7); EOSINOPHILS % (AUTO) 2.4 %; HCT - HEMATOCRIT 40.3 % (37.0-47.0); HGB - HEMOGLOBIN 12.9 g/dL (12.0-16.0); LYMPHOCYTES # (AUTO) 1.5 10^3/uL (1.5-3.5); LYMPHOCYTES % (AUTO) 32.2 %; MEAN CORPUSCULAR HEMOGLOBIN 31.9 pg (27.0-31.0); MEAN CORPUSCULAR VOLUME 99.8 fL (81.0-99.0); MEAN PLATELET VOLUME 10.6 fL (7.9-10.8); MONOCYTES # (AUTO) 0.5 10^3/uL (0.0-1.0); MONOCYTES % (AUTO) 10.8 %; NEUTROPHILS # (AUTO) 2.5 10^3/uL (1.5-6.6); PLT - PLATELET COUNT 161 10^3/uL (130-450); RED BLOOD COUNT 4.04 10^6/uL (4.20-5.40); RED CELL DISTRIBUTION WIDTH 12.3 % (12.0-15.0); WHITE BLOOD COUNT 4.6 x10^3/uL (4.8-10.8)
[2023-11-05 16:43] LABS: ALBUMIN 4.2 g/dL (3.2-5.5); ALBUMIN/GLOBULIN RATIO 1.8 (1.0-2.2); BILIRUBIN,TOTAL 0.3 mg/dL (0.2-1.0); CALCIUM 8.9 mg/dL (8.5-10.3); CREATININE 0.7 mg/dL (0.6-1.3); MAGNESIUM 1.7 mg/dL (1.7-2.3); POTASSIUM 4.3 mmol/L (3.5-4.5); TOTAL PROTEIN 6.6 g/dL (6.4-8.9)
[2023-11-05 16:54] LABS: THYROID STIMULATING HORMONE 2.95 uIU/mL (0.34-5.60)
--- NOTE | 2023-11-05 17:01 | XRAY Report ---
PROCEDURE: Wrist 4 View RT INDICATIONS: wrist inj TECHNIQUE: 3 views of the wrist were acquired. COMPARISON: None. FINDINGS: Bones: No fractures or dislocations. No suspicious bony lesions. Bones appear osteopenic. Soft tissues: No suspicious soft tissue calcifications or masses. IMPRESSION: No acute bony abnormality identified. If clinically indicated consider follow-up radiographs in 10-14 days. Reviewed by: Cuong Solano MD on 11/05/2023 4:59 PM PST Approved by: Cuong Solano MD on 11/05/2023 4:59 PM PST Station ID: [id number]
[2023-11-05 17:13] LABS: PT - PROTHROMBIN TIME 21.1 secs (9.9-12.6)
--- NOTE | 2023-11-05 18:18 | CT Report ---
PROCEDURE: CHEST WO INDICATIONS: anterior/right chest wall inj TECHNIQUE: Noncontrast 1mm axial images were acquired from the pulmonary apices to the posterior costophrenic an gles. Axial 5 mm soft tissue kernel reconstructions were performed as well as 8 mm axial MIP and cor onal and sagittal 5 mm reformations. For radiation dose reduction, the following was used: automate d exposure control, adjustment of mA and/or kV according to patient size. COMPARISON: CT chest 02/06/2021. FINDINGS: Image quality: Excellent. Lungs and pleura: No consolidation. No pleural effusions. No pneumothorax. No suspicious pulmonary no dules which require follow up. Mediastinum: Heart size is normal. Extensive LAD coronary artery calcifications. No pericardial effus ion. No large vessel abnormality. No mediastinal adenopathy by size criteria. Chest wall and lower neck: Thyroid is unremarkable. No axillary or supraclavicular adenopathy by size . Bones: No aggressive osseous abnormality. Right shoulder arthroplasty. ACDF. Upper Abdomen: Post cholecystectomy. Left renal scarring. No adrenal nodule. IMPRESSION: No acute cardiopulmonary abnormality. No fracture. Reviewed by: Cuong Solano MD on 11/05/2023 6:17 PM PST Approved by: Cuong Solano MD on 11/05/2023 6:17 PM PST Station ID: [id number]
[2023-11-05 18:25] VITALS: BP 152/83; O2SAT 98
[2023-11-05] MEDS ORDERED: oxyCODONE 5 MG TABLET PO STA (18:30)
== END 2023-11-05 18:42 | disposition home or self-care (01) ==
LOC: ED 15:52
DX: S20.211A Contusion of right front wall of thorax, initial encounter (principal); S63.501A Unspecified sprain of right wrist, initial encounter; W01.0XXA Fall on same level from slipping, tripping and stumbling without subsequent striking against object, initial encounter; Y93.89 Activity, other specified; R00.8 Other abnormalities of heart beat; I25.10 Atherosclerotic heart disease of native coronary artery without angina pectoris; I48.91 Unspecified atrial fibrillation; Z79.01 Long term (current) use of anticoagulants; G47.33 Obstructive sleep apnea (adult) (pediatric); R00.1 Bradycardia, unspecified; R07.9 Chest pain, unspecified; E66.01 Morbid (severe) obesity due to excess calories; Z68.41 Body mass index [BMI] 40.0-44.9, adult
CPT/HCPCS: 36415; 71250; 73110; 80053; 83735; 84443; 85025; 85610; 93005; 99212; 99284; A9270; G0463

== ENCOUNTER 2023-11-10 08:00 | Outpatient (CLI) | payer MEDICARE, OTHER | END 2023-11-10 08:01 | disposition home or self-care (01) | LOC: LAB.N 08:00 | PROVIDERS: ATTEND Nurse Practitioner Family | DX: I48.0 Paroxysmal atrial fibrillation (principal); Z79.01 Long term (current) use of anticoagulants; I82.91 Chronic embolism and thrombosis of unspecified vein ==

== ENCOUNTER 2023-11-19 14:15 | Outpatient (CLI) | payer MEDICARE, OTHER ==
--- NOTE | 2023-11-19 15:12 | XRAY Report ---
PROCEDURE: Sacrum/Coccyx INDICATIONS: COCCYX PAIN TECHNIQUE: 2 views of the sacrum and coccyx acquired. COMPARISON: None. FINDINGS: There is a nerve stimulator in sacrum. Bones: No fractures or dislocations. No suspicious bony lesions. Moderate hip and testicular joint degeneration bilaterally. Itwzjkzo-ap-gbvsqc degenerative disc disease at L4-L5 and L5-S1. There is a large disc osteophyte complex at L5-S1 on the right Soft tissues: Visualized bowel gas pattern is normal. No suspicious soft tissue densities. IMPRESSION: 1. 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 2. Surypxct-oj-ydibgx degenerative disc disease in the lower lumbar spine. 3. A nerve stimulator is noted. 4. If clinical symptoms persist, consider cross-sectional imaging such as CT or MRI. Reviewed by: Alicia Martinez MD on 11/19/2023 3:11 PM PST Approved by: Alicia Martinez MD on 11/19/2023 3:11 PM PST Station ID: [id number]
== END 2023-11-19 14:16 | disposition home or self-care (01) ==
LOC: DI 14:15
PROVIDERS: ATTEND Physician Assistant Medical
DX: M16.0 Bilateral primary osteoarthritis of hip (principal); M47.898 Other spondylosis, sacral and sacrococcygeal region; M51.36 Other intervertebral disc degeneration, lumbar region; M51.37 Other intervertebral disc degeneration, lumbosacral region

== ENCOUNTER 2023-12-17 08:00 | Outpatient (CLI) | payer MEDICARE, OTHER | END 2023-12-17 08:01 | disposition home or self-care (01) | LOC: LAB.WCP 08:00 | PROVIDERS: ATTEND Nurse Practitioner Family | DX: I48.0 Paroxysmal atrial fibrillation (principal); Z79.01 Long term (current) use of anticoagulants ==

== ENCOUNTER → 2023-12-29 | Outpatient (CLI) | payer MEDICARE, OTHER | LOC: LAB.WCP 08:00 | PROVIDERS: ATTEND Nurse Practitioner Family | DX: I48.0 Paroxysmal atrial fibrillation (principal); Z79.01 Long term (current) use of anticoagulants ==

== ENCOUNTER 2024-01-12 08:00 | Outpatient (CLI) | payer MEDICARE, OTHER | END 2024-01-12 08:01 | disposition home or self-care (01) | LOC: LAB.WCP 08:00 | PROVIDERS: ATTEND Nurse Practitioner Family | DX: I48.0 Paroxysmal atrial fibrillation (principal); Z79.01 Long term (current) use of anticoagulants; I82.509 Chronic embolism and thrombosis of unspecified deep veins of unspecified lower extremity ==

== ENCOUNTER 2024-01-26 08:00 | Outpatient (CLI) | payer MEDICARE, OTHER | END 2024-01-26 08:01 | disposition home or self-care (01) | LOC: LAB.N 08:00 | PROVIDERS: ATTEND Nurse Practitioner Family | DX: I48.0 Paroxysmal atrial fibrillation (principal); Z79.01 Long term (current) use of anticoagulants ==

== ENCOUNTER 2024-02-04 13:16 | Outpatient (CLI) | payer MEDICARE, OTHER ==
--- NOTE | 2024-02-04 13:53 | Sleep Patient Instructions ---
Sleep Center Visit Summary - Patient Visit Information Reason for Visit: 3-month follow-up - Patient Instructions Additional Instructions: You were here for follow up of CPAP therapy. You will be continued on CPAP therapy with pressure at 7-11 cmH2O. You will be completing a titration sleep study in our sleep lab where you will be sleeping with the CPAP machine on and we will be adjusting your pressures to find your optimal pressure settings. Once we have your results back, we will call you and schedule a follow up to go over the results. You will be called by our office staff to schedule your follow up, but you may contact us with any questions or issue as needed. - Clinic Information Contact: [facility] [address] [place] [address] [email or web address] T: [phone]
--- NOTE | 2024-02-04 13:58 | SLEEP CARE CONSULTATION ---
Information from patient questionnaire entered by Fernanda Addison. I have reviewed and concur with the information entered by Fernanda Addison. This document represents the service I personally performed and the decisions made by , Stephany Oscar ARNP. History of Present Illness Service Date and Time: 02/04/2024 1316 Previous diagnosis: Moderate, Obstructive Sleep Apnea-Hypopnea Syndrome AHI: 24.8 (08/2023) Reason for follow up: three month (F/U) Accompanied by: Spouse (Ray) Equipment type: CPAP (RESMED Airsense 11; 09/2023) Equipment obtained from: Other ([facility]) Mask style: Full face Mask brand: blinkbox (Mohamud Full) Backup mask available: Yes Last cushion change: 1 month Prior sleep studies: No Type of Sleep Study: Polysomnography (COMPLETED 08/27/23) HPI additional information: ANETTE WRIGHT was diagnosed to have moderate, AHI 24.8, obstructive sleep apnea- hypopnea syndrome and returned today for CPAP therapy three month follow-up. Sleep Study - Results Type of Sleep Study: Polysomnography (COMPLETED 08/27/23) Prior sleep studies: No CPAP Compliance Data - Data Reviewed with Patient Average duration of nightly device use: 6 HRS 57 MINS Compliance rate %: 98 (11/04/23-02/01/24; 90/90 days used) Current pressure setting (cmH2O): 7-11 Average residual AHI: 16.2 (unknown 9.6) Central apnea: 1.5 Obstructive apnea: 2.1 Hypopnea: 3 Average large leak: 35.2 L/min Subjective Current pressure setting perceived as: comfortable Initial [place] Sleepiness Scale score: 7 (07/08/23) Current [place] Sleepiness Scale score: 6 (02/04/24) Allergies and Home Medications Known drug allergies: Yes (as listed) Drug allergies reviewed: Yes Home medication list reviewed: Yes (no changes) Allergy and home medication list: Allergies Beta-Blockers (Beta-Adrenergic Bloc Allergy (Intermediate, Verified 02/02/24 15:43) Hives interferon beta-1a [From Avonex] Allergy (Verified 02/02/24 15:43) Unknown Review of Systems Review of systems same as previous: No (4 SHOTS OF CORTISOL IN LOWER BACK) Physical Exam Vital signs obtained and entered by: FERNANDA C, MA Blood Pressure: 160/61 (RIGHT ARM) Cuff size: long Heart Rate: 74 O2 Saturation: 97 Height: 5 ft 3 in Weight: 236 lb 9.6 oz Body Mass Index: 41.9 BMI Classification: Morbidly Obese Impression and Plan 1. Obstructive Sleep Apnea-Hypopnea Syndrome, moderate, with good treatment compliance and fair apnea control with elevated residual AHI. On CPAP therapy, the patient has better sleep quality and is more rested overall. She changed her mask to a Mohamud Full and says it is sealing better and more comfortable than last mask. Patient's pressure setting is still not optimal to control sleep apnea. I advised patient that a titration study will be next step to determine a more optimal pressure setting. They voiced understanding and agreement. Patient's apnea severity and rationale for treatment to reduce apnea, improve sleep quality and reduce cardiovascular and cerebrovascular events was reviewed. I also reviewed the benefit of consistent device use of CPAP for cerebrovascular disease, arrhythmia and fibromyalgia. 2. Obesity, unspecified. Currently patients BMI is 41.9. Obesity increases the risk of apnea, CPAP pressure requirements and overall health risks especially cardiovascular and diabetes. Thus patient is advised to lose weight. * Continue auto CPAP pressure at 7-11 cmH2O * Titration study * Notify me if snoring with mask or feeling that the pressure is too much or too little * Attempt to lose weight * Call this office if any problems using CPAP * Return for follow up after titration study, or sooner if concerns arise Counseling Topics: Spare mask, Weight loss health impact Follow up with Sleep Care in: other (after titration study) Plan: Titration study Visit Type: In Office Time Spent with Patient (minutes): 25 Provider Statement: I spent 100% of the Face to Face Visit with the patient with greater than 50% spent counseling the patient and coordination of care.
[2024-02-04 14:03] VITALS: BP 160/61; O2SAT 97
== END 2024-02-04 13:17 | disposition home or self-care (01) ==
LOC: SC 13:16
PROVIDERS: ATTEND Nurse Practitioner Family
DX: G47.33 Obstructive sleep apnea (adult) (pediatric) (principal); E66.01 Morbid (severe) obesity due to excess calories; Z68.41 Body mass index [BMI] 40.0-44.9, adult
CPT/HCPCS: 99213; G0463; 99212

== ENCOUNTER 2024-02-11 10:20 | Outpatient (CLI) | payer MEDICARE, OTHER ==
[2024-02-11 10:35] LABS: BASOPHILS % (AUTO) 0.6 %; EOSINOPHILS # (AUTO) 0.1 10^3/uL (0.0-0.7); EOSINOPHILS % (AUTO) 2.5 %; HCT - HEMATOCRIT 40.4 % (37.0-47.0); HGB - HEMOGLOBIN 12.9 g/dL (12.0-16.0); LYMPHOCYTES # (AUTO) 1.3 10^3/uL (1.5-3.5); LYMPHOCYTES % (AUTO) 39.7 %; MEAN CORPUSCULAR HEMOGLOBIN 31.6 pg (27.0-31.0); MEAN CORPUSCULAR HGB CONC 31.9 g/dL (32.0-36.0); MEAN PLATELET VOLUME 10.3 fL (7.9-10.8); MONOCYTES # (AUTO) 0.3 10^3/uL (0.0-1.0); MONOCYTES % (AUTO) 9.8 %; NEUTROPHILS # (AUTO) 1.5 10^3/uL (1.5-6.6); NEUTROPHILS % (AUTO) 47.4 %; PLT - PLATELET COUNT 161 10^3/uL (130-450); RED BLOOD COUNT 4.08 10^6/uL (4.20-5.40); RED CELL DISTRIBUTION WIDTH 12.2 % (12.0-15.0); WHITE BLOOD COUNT 3.2 x10^3/uL (4.8-10.8)
[2024-02-11 10:49] LABS: ALBUMIN 4.2 g/dL (3.2-5.5); ALBUMIN/GLOBULIN RATIO 1.6 (1.0-2.2); ALKALINE PHOSPHATASE 70 IU/L (42-121); ALT ALANINE AMINOTRANSFERASE 15 IU/L (10-60); AST ASPARTATE AMINOTRANSFERASE 18 IU/L (10-42); BILIRUBIN,TOTAL 0.4 mg/dL (0.2-1.0); BUN - BLOOD UREA NITROGEN 12 mg/dL (6-20); CALCIUM 9.1 mg/dL (8.5-10.3); CARBON DIOXIDE - CO2 30 mmol/L (21-32); CHLORIDE 104 mmol/L (101-111); CHOL/HDL RATIO 3.2 (<4.4); CHOLESTEROL 151 mg/dL; CREATININE 0.6 mg/dL (0.6-1.3); GFR - MDRD 99 (>89); GLUCOSE 93 mg/dL (74-104); HDL CHOLESTEROL 47 mg/dL; LDL CHOLESTEROL,CALCULATED 82 mg/dL; LDL/HDL RATIO 1.7 (<4.4); POTASSIUM 4.4 mmol/L (3.5-4.5); SODIUM 138 mmol/L (135-145); TOTAL PROTEIN 6.8 g/dL (6.4-8.9); TRIGLYCERIDES 111 mg/dL (48-352); VLDL CHOLESTEROL 22 mg/dL
[2024-02-11 11:05] LABS: THYROID STIMULATING HORMONE 2.14 uIU/mL (0.34-5.60)
[2024-02-11 11:07] LABS: ESTIMATED AVERAGE GLUCOSE 111 mg/dL (70-100); HEMOGLOBIN A1c% 5.5 % (4.27-6.07)
== END 2024-02-11 10:21 | disposition home or self-care (01) ==
LOC: LAB 10:20
PROVIDERS: ATTEND Nurse Practitioner Family
DX: E78.5 Hyperlipidemia, unspecified (principal); Z79.899 Other long term (current) drug therapy; E66.01 Morbid (severe) obesity due to excess calories; I48.0 Paroxysmal atrial fibrillation; Z79.01 Long term (current) use of anticoagulants
CPT/HCPCS: 36415; 80053; 80061; 83036; 83721; 84443; 85025

== ENCOUNTER 2024-02-29 20:52 | Outpatient (CLI) | payer MEDICARE, OTHER | END 2024-02-29 20:53 | disposition home or self-care (01) | LOC: SC 20:52 | PROVIDERS: ATTEND Nurse Practitioner Family | DX: G47.33 Obstructive sleep apnea (adult) (pediatric) (principal); R09.02 Hypoxemia; G47.61 Periodic limb movement disorder; I48.91 Unspecified atrial fibrillation | CPT/HCPCS: 95811 ==

== ENCOUNTER 2024-04-04 13:10 | Outpatient (CLI) | payer MEDICARE, OTHER ==
--- NOTE | 2024-04-04 13:58 | Sleep Patient Instructions ---
Sleep Center Visit Summary - Patient Visit Information Reason for Visit: Titration study follow-up - Patient Instructions Additional Instructions: You were here for follow up of CPAP therapy. You will be continued on CPAP therapy with pressure at 4-8 cmH2O. Please let us know if the pressure change is uncomfortable and we can make further adjustments of the pressure. You should follow up with sleep care in 1-2 months. You may contact us sooner for any questions or concerns. - Clinic Information Contact: [facility] [address] [place] [address] [email or web address] T: [phone]
--- NOTE | 2024-04-04 14:03 | SLEEP CARE CONSULTATION ---
Information from patient questionnaire entered by Fernanda Addison. I have reviewed and concur with the information entered by Fernanda Addison. This document represents the service I personally performed and the decisions made by , Stephany Oscar ARNP. History of Present Illness Service Date and Time: 04/04/2024 1310 Initial [place] Sleepiness Scale score: 7 (07/08/23) Current [place] Sleepiness Scale score: 2 Additional HPI information: ANETTE WRIGHT returns for follow up of a manual CPAP titration study performed on 02/29/2024. Previous study done on 08/27/2023 showed moderate obstructive sleep apnea with AHI 24.8. The patient was informed of the following polysomnography findings: CPAP was initiated at 6 cmH2O and titrated up to CPAP at 7 cmH2O. CPAP at 7 cmH2O appeared to be optimal (AHI of 0.5 per hour on the pressure). There was supine REM sleep on the pressure. Oxygen saturation was mildly low due to low- normal baseline oxygen saturation of 91%. The lower CPAP setting appeared adequate as well. The patient tolerated positive airway pressure therapy well. There was severe periodic leg movement of sleep, not contributing to the sleep fragmentation. Cardiac rhythm was atrial fibrillation. If snoring or perceives is not getting enough air or too much air from the machine, notify this office. Patient does not drink alcohol. Patient was cautioned about risks of drowsy driving until sleepiness symptoms resolve. Patient denies drowsy driving. Sleep Study - Results Type of Sleep Study: Polysomnography (COMPLETED 08/27/23 TITRATION F/U COMPLETED ON 02/29/24) Prior sleep studies: No Polysomnography/Home Sleep Study results: IMPRESSION: The quality of the study is good. CPAP was initiated at 6 cmH2O and titrated up to CPAP at 7 cmH2O. CPAP at 7 cmH2O appeared to be optimal (AHI of 0.5 per hour on the pressure). There was supine REM sleep on the pressure. Oxygen saturation was mildly low due to low0nl low-normal baseline oxygen saturation of 91%. The lower CPAP setting appeared adequate as well. The patient tolerated positive airway pressure therapy well. The patients sleep efficiency was slightly reduced due to prolonged awakening in the middle of the night. The sleep architecture was relatively normal considering the first-night effect. There was severe periodic leg movement of sleep, not contributing to the sleep fragmentation. Cardiac rhythm was atrial fibrillation. No abnormal behavior (parasomnia) observed during the night. Allergies and Home Medications Known drug allergies: Yes (as listed) Drug allergies reviewed: Yes Home medication list reviewed: Yes (no changes) Allergy and home medication list: Allergies Beta-Blockers (Beta-Adrenergic Bloc Allergy (Intermediate, Verified 03/30/24 11:07) Hives interferon beta-1a [From Avonex] Allergy (Verified 03/30/24 11:07) Unknown Review of Systems Review of systems same as previous: Yes (4 cortizone shots in lower back on 10/27/23) Physical Exam Vital signs obtained and entered by: STEPHANY FITZGERALD Blood Pressure: 92/51 Cuff size: wrist (right) Heart Rate: 70 O2 Saturation: 97 Height: 5 ft 3 in Weight: 236 lb 6.4 oz Body Mass Index: 41.8 BMI Classification: Morbidly Obese Impression and Plan 1. Obstructive Sleep Apnea-Hypopnea Syndrome, moderate. She returns after t itration study which showed optimal pressure to be 7 cmH2O. The patient's pressure will be adjusted to 4-8 cmH2O to reflect optimal pressure recommendations from titration study. She was very happy with the mask that she was fitted to and used the night of the study. She says it continues to be comfortable and she is using it at home. She was fitted to a [employer] Mohamud nasal mask, medium cushion. Patient advised to contact me if pressure change is uncomfortable so that it can be adjusted. Goals for apnea control discussed. Patient's apnea severity and rationale for treatment to reduce apnea, improve sleep quality and reduce cardiovascular and cerebrovascular events was reviewed. I also reviewed the benefit of consistent device use of CPAP for cerebrovascular disease, arrhythmia. 2. Hypoxemia, mild, with a heber oxygen saturation of 85% and 15.5 minutes spent under 90%. The baseline oxygen saturation was normal with an average oxygen saturation of 91%. 3. Atrial fibrillation. Patient noted to have cardiac rhythm of atrial fibrillation during the night of the study. She has a history of atrial fibrillation and is being seen by cardiology. 4. Obesity, unspecified. Currently patients BMI is 41.8. Obesity increases the risk of apnea, CPAP pressure requirements and overall health risks especially cardiovascular and diabetes. Thus patient is advised to lose weight. * Change auto CPAP pressure to 4-8 cmH2O * Notify me if snoring with mask or feeling that the pressure is too much or too little * Attempt to lose weight * Call this office if any problems using CPAP * Return for follow up in 1-2 months, or sooner if concerns arise Adjust device pressure to (cmH2O): 4-8 Counseling Topics: Weight loss health impact Follow up with Sleep Care in: 1-2 months Visit Type: In Office Time Spent with Patient (minutes): 20 Provider Statement: I spent 100% of the Face to Face Visit with the patient with greater than 50% spent counseling the patient and coordination of care.
[2024-04-04 14:09] VITALS: BP 92/51; O2SAT 97
== END 2024-04-04 13:11 | disposition home or self-care (01) ==
LOC: SC 13:10
PROVIDERS: ATTEND Nurse Practitioner Family
DX: G47.33 Obstructive sleep apnea (adult) (pediatric) (principal); R09.02 Hypoxemia; I48.91 Unspecified atrial fibrillation; E66.01 Morbid (severe) obesity due to excess calories; Z68.41 Body mass index [BMI] 40.0-44.9, adult
CPT/HCPCS: 99213; G0463; 99212

== ENCOUNTER 2024-06-02 08:00 | Outpatient (CLI) | payer MEDICARE, OTHER | END 2024-06-02 23:59 | disposition home or self-care (01) | LOC: LAB.WCP 08:00 | PROVIDERS: ATTEND Nurse Practitioner Family | DX: I48.0 Paroxysmal atrial fibrillation (principal); I82.91 Chronic embolism and thrombosis of unspecified vein; Z79.01 Long term (current) use of anticoagulants ==

== ENCOUNTER 2024-06-14 10:06 | Outpatient (CLI) | payer MEDICARE, OTHER ==
--- NOTE | 2024-06-14 10:32 | Sleep Patient Instructions ---
Sleep Center Visit Summary - Patient Visit Information Reason for Visit: 2 months follow up - Patient Instructions Additional Instructions: You were here for follow up of CPAP therapy. You will be continued on CPAP therapy with pressure at 4-8 cmH2O. You should follow up with sleep care in 12 months. You may contact us sooner for any questions or concerns. - Clinic Information Contact: [facility] [address] [place] [address] [email or web address] T: [phone]
--- NOTE | 2024-06-14 10:35 | SLEEP CARE CONSULTATION ---
Information from patient questionnaire entered by Fernanda Addison. I have reviewed and concur with the information entered by Fernanda Addison. This document represents the service I personally performed and the decisions made by , Stephany Oscar ARNP. History of Present Illness Service Date and Time: 06/14/2024 1006 Previous diagnosis: Moderate, Obstructive Sleep Apnea-Hypopnea Syndrome AHI: 24.8 (08/2023) Reason for follow up: other (TWO MONTH F/U) Accompanied by: Spouse (Ray) Equipment type: CPAP (RESMED Airsense 11; 09/2023) Equipment obtained from: Other ([facility]; getting supplies) Mask style: Full face Mask brand: [employer] (Mohamud Full) Backup mask available: Yes Last cushion change: 2 weeks Prior sleep studies: No Type of Sleep Study: Polysomnography (COMPLETED 08/27/23 TITRATION F/U COMPLETED ON 02/29/24) HPI additional information: ANETTE WRIGHT was diagnosed to have moderate, AHI 24.8, obstructive sleep apnea- hypopnea syndrome and returned today for CPAP therapy 2 month follow-up. Sleep Study - Results Type of Sleep Study: Polysomnography (COMPLETED 08/27/23 TITRATION F/U COMPLETED ON 02/29/24) Prior sleep studies: No CPAP Compliance Data - Data Reviewed with Patient Average duration of nightly device use: 7 HRS 25 MINS Compliance rate %: 100 (04/13/24-06/11/24; 60/60 days used) Current pressure setting (cmH2O): 4-8 (median 4.9, avg 7.2, max 7.7) Average residual AHI: 2.6 Central apnea: 2.1 Obstructive apnea: 0.2 Hypopnea: 0.2 Average large leak: 0 L/min Subjective Patient concerns: denies: aerophagia, mask discomfort, air blowing in eyes, mask leak noise, condensation in mask/hose, nasal congestion, dry mouth, nose, throat, epistaxis Observed to snore while using device: No Current pressure setting perceived as: comfortable On therapy, patient: reports: sleeping better, awakening more refreshed, being more awake and alert during the day, more rested overall. denies: drowsiness w hile driving Initial Milano Sleepiness Scale score: 7 (07/08/23) Current Mil[place] Sleepiness Scale score: 2 (06/14/24) Allergies and Home Medications Known drug allergies: Yes (as listed) Drug allergies reviewed: Yes Home medication list reviewed: Yes (no changes) Allergy and home medication list: Allergies Beta-Blockers (Beta-Adrenergic Bloc Allergy (Intermediate, Verified 06/12/24 09:30) Hives interferon beta-1a [From Avonex] Allergy (Verified 06/12/24 09:30) Unknown Review of Systems Review of systems same as previous: Yes (NO CHANGE) Physical Exam Vital signs obtained and entered by: FERNANDA Garcia MA Blood Pressure: 142/59 (RIGHT ARM) Cuff size: long Heart Rate: 43 O2 Saturation: 95 Height: 5 ft 3 in Weight: 232 lb 12.8 oz Body Mass Index: 41.2 BMI Classification: Morbidly Obese Impression and Plan 1. Obstructive Sleep Apnea-Hypopnea Syndrome, moderate, with good treatment compliance and good apnea control. On CPAP therapy, the patient has better sleep quality and is more rested overall. She has significant improvement of her sleep apnea and is satisfied with current CPAP therapy. She is very happy with the mask change and she says everything is working "perfectly". She has no complaints or issues with her mask at this time. Patient's apnea severity and rationale for treatment to reduce apnea, improve sleep quality and reduce cardiovascular and cerebrovascular events was reviewed. I also reviewed the benefit of consistent device use of CPAP for cardiac disease, arrhythmia. 2. Obesity, unspecified. Currently patients BMI is 41.2. Obesity increases the risk of apnea, CPAP pressure requirements and overall health risks especially cardiovascular and diabetes. Thus patient is advised to lose weight. * Continue auto CPAP pressure at 4-8 cmH2O * Notify me if snoring with mask or feeling that the pressure is too much or too little * Attempt to lose weight * Call this office if any problems using CPAP * Return for follow up in 12 months, or sooner if concerns arise Continue with device pressure at (cmH2O): 4-8 Counseling Topics: Spare mask, Weight loss health impact Follow up with Sleep Care in: 1 year Visit Type: In Office Time Spent with Patient (minutes): 16 Provider Statement: I spent 100% of the Face to Face Visit with the patient with greater than 50% spent counseling the patient and coordination of care.
[2024-06-14 11:00] VITALS: BP 142/59; O2SAT 95
== END 2024-06-14 10:07 | disposition home or self-care (01) ==
LOC: SC 10:06
PROVIDERS: ATTEND Nurse Practitioner Family
DX: G47.33 Obstructive sleep apnea (adult) (pediatric) (principal); E66.01 Morbid (severe) obesity due to excess calories; Z68.41 Body mass index [BMI] 40.0-44.9, adult
CPT/HCPCS: 99212; G0463

== ENCOUNTER 2024-07-28 08:00 | Outpatient (CLI) | payer MEDICARE, OTHER | END 2024-07-28 23:59 | disposition home or self-care (01) | LOC: LAB.WCP 08:00 | PROVIDERS: ATTEND Nurse Practitioner Family | DX: I48.0 Paroxysmal atrial fibrillation (principal); Z79.01 Long term (current) use of anticoagulants ==